=== PATIENT | female | born 1955 | race Caucasian/White ===

== ENCOUNTER → 2022-02-19 15:16 | Outpatient (BNVA) | payer MEDICARE, SELFPAY | PROVIDERS: Family Provider Nurse Practitioner Family; PCP Nurse Practitioner Family; Visit Provider Internal Medicine | DX: I10 Essential (primary) hypertension (principal); I34.0 Nonrheumatic mitral (valve) insufficiency; I25.10 Atherosclerotic heart disease of native coronary artery without angina pectoris; E78.5 Hyperlipidemia, unspecified | CPT/HCPCS: 99213 ==

== ENCOUNTER → 2023-06-05 14:47 | Outpatient (BNVA) | payer MEDICARE, SELFPAY | PROVIDERS: Family Provider Nurse Practitioner Family; PCP Nurse Practitioner Family; Visit Provider Internal Medicine | DX: I10 Essential (primary) hypertension (principal); I34.0 Nonrheumatic mitral (valve) insufficiency; I25.10 Atherosclerotic heart disease of native coronary artery without angina pectoris; E78.5 Hyperlipidemia, unspecified | CPT/HCPCS: 99213 ==

== ENCOUNTER → 2024-06-03 12:02 | Outpatient (BNVA) | payer MEDICARE, SELFPAY | PROVIDERS: Family Provider Nurse Practitioner Family; PCP Nurse Practitioner Family; Visit Provider Internal Medicine | DX: I25.10 Atherosclerotic heart disease of native coronary artery without angina pectoris (principal); I10 Essential (primary) hypertension; I34.0 Nonrheumatic mitral (valve) insufficiency; E78.5 Hyperlipidemia, unspecified | CPT/HCPCS: 99214 ==

== ENCOUNTER 2025-01-11 11:54 | Inpatient (IN) | payer MEDICARE, SELFPAY ==
[2025-01-11] VITALS (50 sets, daily range): BP systolic 97–173; BP diastolic 60–133; PULSE 109–150; RESP 14–45; TEMP 36.3; O2SAT 86–100
--- NOTE | 2025-01-11 12:07 | XR_ITS ---
WS: [id number] Exam: XR chest 1V portable [id number] Date/Time of Exam: 01/11/2025 1:02 PM Reason For Exam: sob No priors. Lungs are fully expanded and clear. Mild cardiac enlargement. No pleural effusions. The mediastinum is normal in contour. Bony structures are intact. XR/XR chest 1V portable [id number] IMPRESSION: 1. Mild cardiac enlargement. No acute process.
--- NOTE | 2025-01-11 12:08 | ECG_ITS ---
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 Measurements Intervals [place] Rate: 156 P: 0 PA: 0 QRS: -63 QRSD: 162 T: 125 QT: 332 QTc: 536 Interpretive Statements ATRIAL FIBRILLATION WITH RAPID VENTRICULAR RESPONSE LEFT AXIS DEVIATION [QRS AXIS < -30] INTRAVENTRICULAR CONDUCTION DELAY [130+ ms QRS DURATION] ST DEPRESSION, CONSIDER SUBENDOCARDIAL INJURY [0.1+ mV ST DEPRESSION] CRITICAL TEST RESULT INTERPRETATION BASED ON A DEFAULT AGE OF 40 YEARS No previous ECG available for comparison Electronically Signed On 01-11-2025 18:48:18 CDT by Kristen Chaudhary M.D. [email or web address] [id number]
[2025-01-11] MEDS: amiodarone 50 mg/mL SDV 3 mL 150 MG IVP (12:10)
--- NOTE | 2025-01-11 12:14 | ED_ITS ---
HPI - Arrhythmia/Palpitations 2 General: Chief Complaint: Arrhythmia/Palpitations Stated Complaint: trouble breathing, back pain Time Seen by Provider: 01/11/25 12:07 Source: patient Mode of arrival: ambulatory Limitations: no limitations History of Present Illness: 69-year-old female history of coronary d isease states that over the last 2 days she has been having palpitations with her heart racing along with some upper back pain. States she has had some mild chest pains no pain currently. She does appear to be in A-fib with RVR no known history of A-fib. She denies any dyspnea or fever. Associated symptoms: Deny nausea or vomiting Related Data Home Medications ?Medication ?Instructions ?Recorded ?Confirmed aspirin 81 mg tablet,delayed 81 mg PO QDAY 11/01/19 release (Adult Low Dose Aspirin) pseudoephedrine HCl 30 mg tablet 30 mg PO DAILY PRN Co ngestion 11/02/19 01/11/25 chlorpheniramine maleate 4 mg 4 mg PO DAILY 01/11/25 0 01/11/25 tablet lovastatin 40 mg tablet 40 mg PO Q7D 01/11/25 metoprolol tartrate 50 mg tablet 50 mg PO BID 01/11/25 01/11/25 Previous Rx's ?Medication ?Instructions ?Recorded amlodipine 5 mg tablet 5 mg PO QDAY #90 tabs omeprazole 20 mg capsule,delayed 20 mg PO DAILY #90 ca ps 11/09/24 release spironolactone 25 mg tablet 25 mg PO QDAY #90 tabs 01/28 hydrochlorothiazide 25 mg tablet 25 mg PO QAM #90 tabs 11/22/24 Allergies Allergy/AdvReac Type Severity Reaction Status Date / Time Penicillins Allergy Severe ALGY-Rash Verified 01/11/25 12:07 simvastatin Allergy Intermediate ADR-Abdominal Verified 01/11/25 12:07 Pain lisinopril (From Zestril) AdvReac Intermediate ADR-Cough Verified 01/11/25 12:07 Review of Systems 2 Const: Denies: fever(s), chills, body aches or change in appetite ENMT: Denies: throat pain or dental pain Card: Reports: chest pain, palpitations and irregular heart rhythm Resp: Denies: dyspnea GI: Denies: abdominal pain, nausea, vomiting or diarrhea Musc: Reports: back pain; Denies: neck pain Skin/Breast: Denies: rash Neuro: Denies: headache(s) PFSH ED 2 PFSH: Medical History (Updated 01/11/25 @ 14:30 by Lisandro Verdin MD) HTN (hypertension) Mitral regurgitation ASHD (arteriosclerotic heart disease) Dyslipidemia Family History Father CAD (coronary artery disease) Myocardial infarction Sister CAD (coronary artery disease) Myocardial infarction Mother CAD (coronary artery disease) Myocardial infarction Brother Lung disease CAD (coronary artery disease) Myocardial infarction Social History Smoking and tobacco/nicotine status: never used tobacco/nicotine Alcohol intake: never Substance/Drug Use: never Lives independently: Yes Household members: spouse Marital status: Current occupational status: retired Micki/Sabianist: Islam Physical Exam 2 Const: COMMON NORMALS: patient oriented x3 HENMT: COMMON NORMALS: normocephalic and atraumatic HEAD & SCALP: n ormocephalic and atraumatic Eye: COMMON NORMALS: conjunctivae normal CONJUNCTIVA: Yes conjunctivae normal Neck/C-Spine: COMMON NORMALS: full ROM and supple Chest: COMMONS NORMALS: normal inspection of the chest Resp: COMMON NORMALS: normal respiratory effort, No retractions, No use of accessory muscles and clear to auscultation bilaterally AUSCULTATION: clear to auscultation bilaterally Cardio: COMMON NORMALS: No murmurs present (Cardio) RATE: tachycardic R HYTHM: abnormal rhythm irregularly irregular GI: COMMON NORMALS: Normal to inspection, nondistended, normoactive bowel sounds present, Soft to palpation, non-tender and no masses PALPATION: Yes Soft to palpation Extremity: COMMON NORMALS: normal to inspection and full ROM Neuro: COMMON NORMALS: patient oriented x3, moves all extremities and no focal motor deficits Psych: COMMON NORMALS: mental status grossly normal, Normal thought process present and cooperative THOUGHT PROCESS: Normal thought process present Skin: COMMON NORMALS: no rashes or lesions noted and no wounds GENERAL SKIN EXAM: no rashes or lesions noted Course 2 Vital Signs: Vital signs: Vital Signs Temperature 97.3 F L 01/11/25 11:56 Pulse Rate 121 H 01/11/25 12:51 Respiratory Rate 16 01/11/25 13:27 Blood Pressure 112/70 01/11/25 12:51 Pulse Oximetry 96 01/11/25 13:27 Oxygen Delivery Me thod Room Air 01/11/25 11:56 MDM - Arrhythmia/Palpitations Medical Decision Making Patient presents here with A-fib with RVR initial troponin and BNP are elevated she had no chest pain here CT showed no signs of PE did start on amiodarone her heart rate has improved did start on heparin as well spoke to hospitalist will admit at this time Medical Records I reviewed the patient's medical records. Lab Data I reviewed the patient's lab results. 01/11/25 12:10 01/11/25 12:10 Radiology Impressions Chest X-Ray 01/11/25 12:07 IMPRESSION: 1. Mild cardiac enlargement. No acute process. Chest CTA 01/11/25 12:55 IMPRESSION: 1. No evidence of pulmonary embolus. 2. Cardiomegaly with evidence of RIGHT heart dysfunction and reflux of contrast into the hepatic veins. 3. Interstitial thickening likely due to edema. No focal pneumonia. Laboratory Results WBC 13.24 10^3/uL (3.29-11.43) H 01/11/25 12:10 RBC 4.00 10^6/uL (3.85-5.65) 01/11/25 12:10 Hgb 12.20 g/dL (11.27-16.99) 01/11/25 12:10 Hct 38.0 % (36-47) 01/11/25 12:10 MCV 95.0 fl (85-98) 01/11/25 12:10 MCH 30.5 pg (27-33) 01/11/25 12:10 MCHC 32.1 g/dL (30-55) 01/11/25 12:10 RDW 13.0 % (12.1-15.1) 01/11/25 12:10 Plt Count 376 10^3/cmm (157-399) 01/11/25 12:10 MPV 10.2 fL (7.4-10.4) 01/11/25 12:10 Neut % (Auto) 72.6 % 01/11/25 12:10 Lymph % (Auto) 19.0 % 01/11/25 12:10 [place] % (Auto) 7.3 % 01/11/25 12:10 Eos % (Auto) 0.2 % 01/11/25 12:10 Baso % (Auto) 0.4 % 01/11/25 12:10 Neut # (Auto) 9.61 10^3/uL (1.8-7.7) H 01/11/25 12:10 Lymph # (Auto) 2.5 10^3/uL (0.8-4.8) 01/11/25 12:10 [place] # (Auto) 1.0 10^3/uL (0.2-0.9) H 01/11/25 12:10 Eos # (Auto) 0.0 10^3/uL (0.0-0.8) 01/11/25 12:10 Baso # (Auto) 0.1 10^3/uL (0.0-0.1) 01/11/25 12:10 Nucleated RBC % (auto) 0 % 01/11/25 12:10 Nucleated RBCs # 0.0 /100WBC 01/11/25 12:10 PT 15.00 SECONDS (12.1-14.9) H 01/11/25 12:10 INR 1.10 (0.8-1.2) 01/11/25 12:10 Sodium 131 mmol/L (136-145) L 01/11/25 12:10 Potassium 4.6 mmol/L (3.5-5.1) 01/11/25 12:10 Chloride 89 mmol/L (98-107) L 01/11/25 12:10 Carbon Dioxide 18 mmol/L (22-29) L 01/11/25 12:10 Anion Gap 28.6 (5-19) H 01/11/25 12:10 BUN 49 mg/dL (8-23) H 01/11/25 12:10 Creatinine 1.7 mg/dL (0.5-0.9) H 01/11/25 12:10 GFR Calculation Not Reportable 01/11/25 12:10 Glucose 366 mg/dL (65-115) H 01/11/25 12:10 Calculated Osmolality 300 mOsm/kg (285-295) H 01/11/25 12:10 Calcium 10.8 mg/dL (8.5-10.5) H 01/11/25 12:10 Total Bilirubin 0.9 mg/dL (0.15-1.2) 01/11/25 12:10 AST 25 U/L (0-32) 01/11/25 12:10 ALT 26 U/L (0-33) 01/11/25 12:10 Alkaline Phosphatase 78 U/L (35-105) 01/11/25 12:10 Troponin T Baseline 201 ng/L (0-10) H* 01/11/25 12:10 Troponin T 120 Minute 169.9 ng/L (0-10) H 01/11/25 13:52 Delta Troponin T -31.1 ABS# (0-10) L 01/11/25 13:52 NT-Pro-B Natriuret Pep 78331 pg/mL (0-125) H 01/11/25 12:10 Total Protein 8.3 g/dL (6.6-8.7) 01/11/25 12:10 Albumin 5.0 g/dL (3.5-5.2) 01/11/25 12:10 Globulin 3.3 g/dL (1.3-4.6) 01/11/25 12:10 All radiology interpretation(s) finalized by discharge EKG Data EKG 1: I personally reviewed and interpreted this EKG as follows: EKG interpretation date: 01/11/25 EKG interpretation time: 12:02 Interpretation: afib rvr hr [address] elevation qrs 162 qtc 420 Other EKG comments: Chest X-Ray 01/11/25 12:07 IMPRESSION: 1. Mild cardiac enlargement. No acute process. Chest CTA 01/11/25 12:55 IMPRESSION: 1. No evidence of pulmonary embolus. 2. Cardiomegaly with evidence of RIGHT heart dysfunction and reflux of contrast into the hepatic veins. 3. Interstitial thickening likely due to edema. No focal pneumonia. EKG 2: I personally reviewed and interpreted this EKG as follows: EKG interpretation date: 01/11/25 EKG interpretation time: 12:45 Interpretation: afib rvr hr [address] elevation qrs 180 qtc 451 Other EKG comments: Chest X-Ray 01/11/25 12:07 IMPRESSION: 1. Mild cardiac enlargement. No acute process. Chest CTA 04/08/25 12:55 IMPRESSION: 1. No evidence of pulmonary embolus. 2. Cardiomegaly with evidence of RIGHT heart dysfunction and reflux of contrast into the hepatic veins. 3. Interstitial thickening likely due to edema. No focal pneumonia. Critical Care Time 2 Critical Care Time: Critical Care Time: Yes Total Critical Care Time: 45 Attestation: The high probability of a clinically significant, sudden or life threatening deterioration of the patient's cv system(s) required my full and direct attention, intervention and personal management. The critical care time is as shown. This time is in addition to time spent performing any reported procedures but includes the following: [x] Data and vital sign review and interpretation [x] Patient assessment, examination and intervention [x] Documentation [x] Medication orders and management Discharge Plan Discharge Patient Disposition: Admitted As Inpatient Clinical Impression: Atrial fibrillation with RVR Condition: Stable Prescriptions: No Action aspirin [Adult Low Dose Aspirin] 81 mg tablet,delayed release (DR/EC) 81 mg PO QDAY pseudoephedrine HCl 30 mg tablet 30 mg PO DAILY PRN (Reason: Congestion) amlodipine 5 mg tablet 5 mg PO QDAY Qty: 90 0RF spironolactone 25 mg tablet 25 mg PO QDAY Qty: 90 3RF omeprazole 20 mg capsule,delayed release(DR/EC) 20 mg PO DAILY Qty: 90 3RF hydrochlorothiazide 25 mg tablet 25 mg PO QAM Qty: 90 3RF chlorpheniramine maleate [Chlor Allergy] 4 mg Tablet 4 mg PO DAILY lovastatin 40 mg tablet 40 mg PO Q7D metoprolol tartrate 50 mg tablet 50 mg PO BID Referrals: Mila Mcintosh, SENIOR CLINICAL SAS PROGRAMMER-C [Primary Care Provider] - Print Language: Nigerien Coding Level of Care Code ED [employer]ling [employer] Grader for [place]
[2025-01-11 12:19] LABS: Basophils # 0.1 10^3/uL (0.0-0.1); Basophils % 0.4 %; Eosinophils % 0.2 %; Lymphocytes # 2.5 10^3/uL (0.8-4.8); Mean Corpuscular HGB Conc 32.1 g/dL (30-55); Mean Corpuscular Hemoglobin 30.5 pg (27-33); Mean Platelet Volume 10.2 fL (7.4-10.4); Monocytes % 7.3 %; Neutrophils # 9.61 10^3/uL (1.8-7.7); Neutrophils % 72.6 %; Nucleated Red Blood Cells % 0 %; Platelet Count 376 10^3/cmm (157-399); White Blood Count 13.24 10^3/uL (3.29-11.43)
[2025-01-11] MEDS: sodium chloride 0.9% 1,000 ML 999 ML IV (12:26)
[2025-01-11 12:44] LABS: Troponin(5th) Baseline 201 ng/L (0-10)
[2025-01-11 12:48] LABS: Alanine Aminotransferase 26 U/L (0-33); Alkaline Phosphatase 78 U/L (35-105); Anion Gap 28.6 (5-19); Aspartate Amino Transferase 25 U/L (0-32); Blood Urea Nitrogen 49 mg/dL (8-23); Calcium 10.8 mg/dL (8.5-10.5); Carbon Dioxide 18 mmol/L (22-29); Chloride 89 mmol/L (98-107); Creatinine Clr Calc Pharmacy 29.0804; Globulin 3.3 g/dL (1.3-4.6); Glucose 366 mg/dL (65-115); NT Pro B Type Natriuretic Pept 20033 pg/mL (0-125); Osmolality Calculated 300 mOsm/kg (285-295); Potassium 4.6 mmol/L (3.5-5.1); Sodium 131 mmol/L (136-145); Total Bilirubin 0.9 mg/dL (0.15-1.2); Total Protein 8.3 g/dL (6.6-8.7)
--- NOTE | 2025-01-11 12:55 | CT_ITS ---
WS: [id number] CTA OF THE CHEST WITH PULMONARY EMBOLISM PROTOCOL TECHNIQUE: High-resolution contrast enhanced CTA of the chest with coronal and sagittal reformatted images with pulmonary embolism protocol. MIP images are also reviewed. CLINICAL INFORMATION: cp COMPARISON: None. DLP: 205.[address] scans at [facility] use at least one of these dose optimization techniques: automated exposure control; mA and/or kV adjustment per patient size (includes targeted exams where dose is matched to clinical indication); or iterative reconstruction. FINDINGS: Proximal pulmonary arteries are normal. Normal segmental and subsegmental pulmonary arteries. No evidence of pulmonary embolus. Cardiomegaly. Pooling of contrast in the RIGHT heart with reflux into the hepatic veins suggestive of RIGHT heart failure. Normal caliber thoracic aorta. Aortic and coronary calcification. Air visualized in the innominate vein and RIGHT IJ likely from central line or recent catheter placement. Lungs are well aerated. No acute pulmonary infiltrates. Interstitial thickening likely due to edema CT/CT angio chest PE protcl [id number] IMPRESSION: 1. No evidence of pulmonary embolus. 2. Cardiomegaly with evidence of RIGHT heart dysfunction and reflux of contras t into the hepatic veins. 3. Interstitial thickening likely due to edema. No focal pneumonia.
[2025-01-11] MEDS: morphine 4 mg/mL SDV 1 mL IVP (13:27)
[2025-01-11] MEDS: ondansetron 2 mg/ML SDV 2 mL 4 MG IVP (13:28)
[2025-01-11] MEDS: iohexol 350 mg/mL 500 mL Btl (per mL) IV (13:42)
[2025-01-11] MEDS: heparin 5,000 unit/mL INJ 1 mL IVP (13:59)
[2025-01-11] MEDS: heparin drip 25,000 UNIT/500 ML PREMIX 18 UNIT IV (14:03)
--- NOTE | 2025-01-11 14:08 | ECG_ITS ---
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 Measurements Intervals [place] Rate: 118 P: 0 IA: 0 QRS: -64 QRSD: 180 T: 127 QT: 381 QTc: 535 Interpretive Statements ATRIAL FIBRILLATION WITH RAPID VENTRICULAR RESPONSE WITH ABERRANT CONDUCTION OR VENTRICULAR PREMATURE COMPLEXES LEFT AXIS DEVIATION [QRS AXIS < -30] LEFT BUNDLE BRANCH BLOCK [120+ ms QRS DURATION, 80+ ms Q/S IN V1/V2, 85+ ms R IN I/aVL/V5/V6] ST DEPRESSION, CONSIDER SUBENDOCARDIAL INJURY [0.1+ mV ST DEPRESSION] Compared to ECG 01/11/2025 12:02:37 Ventricular premature complex(es) now present Aberrant conduction of supraventricular beat(s) now present Left bundle-branch block now present Intraventricular conduction delay no longer present ST (T wave) deviation still present Electronically Signed On 01-11-2025 18:56:51 CDT by Kristen Chaudhary M.D. [id number] [id number]
[2025-01-11 14:23] LABS: Troponin 5 2HR 169.9 ng/L (0-10); Troponin 5 2HR Delta -31.1 ABS# (0-10)
--- NOTE | 2025-01-11 14:42 | PM.HP ---
Providers/Chief Complaint Primary Care Provider: LEONCIO Chatterjee Chief Complaint: trouble breathing, back pain History of Present Illness Fany Morel is a 69 year old female with a past medical history significant for hypertension, hyperlipidemia, coronary artery disease, congestive heart failure, and nonischemic cardiomyopathy who presents to the emergency department with palpitations x 2 days. She endorses associated symptoms of generalized malaise and fatigue. Exertion worsens symptoms. Rest improves. Denies fevers or chills. Reports persistent cough with frothy sputum production. In emergency department, patient was found to be in atrial fibrillation with RVR. She denies prior known history of atrial fibrillation. She does endorse intermittent palpitations over time. She does have a history of heart disease. She follows in cardiology clinic. She reports a remote history of congestive heart failure following a viral infection many years ago resulting in ejection fraction around 25%. She reported it eventually recovered. She states that she does not think she has had an echo in at least 5 years. Review of Systems Narrative: A complete review of systems was obtained and is negative except as stated in HPI. Medications/Allergies Home Medications ?Medication ?Instructions ?Recorded ?Confirmed ?Last Taken ?Type aspirin 81 mg tablet,delayed 81 mg PO QDAY 11/01/19 01/11/25 01/11/25 History release (Adult Low Dose Aspirin) pseudoephedrine HCl 30 mg tablet 30 mg PO DAILY PRN Congestion 11/02/19 01/11/25 01/11/25 History amlodipine 5 mg tablet 5 mg PO QDAY #90 tabs 11/09/24 01/11/25 01/11/25 Rx omeprazole 20 mg capsule,delayed 20 mg PO DAILY #90 caps 11/09/24 01/11/25 01/11/25 Rx release spironolactone 25 mg tablet 25 mg PO QDAY #90 tabs 11/09/24 01/11/25 01/11/25 Rx hydrochlorothiazide 25 mg tablet 25 mg PO QAM #90 tabs 11/22/24 01/11/25 01/11/25 Rx chlorpheniramine maleate 4 mg 4 mg PO DAILY 01/11/25 01/11/25 01/11/25 History tablet lovastatin 40 mg tablet 40 mg PO Q7D 01/11/25 01/11/25 01/07/25 History metoprolol tartrate 50 mg tablet 50 mg PO BID 01/11/25 01/11/25 01/11/25 History Allergies Allergy/AdvReac Type Severity Reaction Status Date / Time Penicillins Allergy Severe ALGY-Rash Verified 01/11/25 12:07 simvastatin Allergy Intermediate ADR-Abdominal Verified 01/11/25 12:07 Pain lisinopril (From Zestril) AdvReac Intermediate ADR-Cough Verified 01/11/25 12:07 PFSH Acute PFSH: Medical History (Updated 01/11/25 @ 15:15 by Artemio Rubi MD) HTN (hypertension) Mitral regurgitation ASHD (arteriosclerotic heart disease) Dyslipidemia Family History Father CAD (coronary artery disease) Myocardial infarction Sister CAD (coronary artery disease) Myocardial infarction Mother CAD (coronary artery disease) Myocardial infarction Brother Lung disease CAD (coronary artery disease) Myocardial infarction Social History Smoking and tobacco/nicotine status: never used tobacco/nicotine Alcohol intake: never Substance/Drug Use: never Lives independently: Yes Household members: spouse Marital status: Current occupational status: retired Micki/Yarsani: Yarsanism Vitals/I&O/Wt Last Vital Signs Temp 97.3 F L 01/11/25 11:56 Pulse 121 H 01/11/25 12:51 Resp 16 01/11/25 13:27 BP 112/70 01/11/25 12:51 Pulse Ox 96 01/11/25 13:27 O2 Del Method Room Air 01/11/25 11:56 Weight last 48 hrs Weight 66.224 kg Physical Exam Narrative: General: Patient is awake. Appears fatigued. Head: Normocephalic. Atraumatic. EOM intact. Neck: No JVD. Cardiovascular: Tachycardic with irregularly irregular rhythm.. No gallops. No murmurs. Lungs: Dependent crackles bilaterally. Slightly tachypneic. Increased work of breathing with talking. No wheezing or rales. Skin: No jaundice. No rashes. Abdomen: Normal bowel sounds, abdomen soft and nontender. Genito Urinary: Genital exam not performed since complaints not related. Rectal: Rectal exam not performed since no symptoms indicated blood loss. Extremities: No cyanosis or clubbing. Musculoskeletal: No swollen or erythematous joints. Neurological: Moves all 4 extremities. No myoclonus. Data 01/11/25 12:10 01/11/25 12:10 A&P Assessment and plan (1) Atrial fibrillation: Newly diagnosed paroxysmal A-fib with RVR Monitor electrolytes, check magnesium Check thyroid function Blood pressure soft, will continue with amiodarone drip [id number] likely high, started on heparin drip (2) Heart failure: Patient reports remote history of congestive heart failure Clinical exam and presentation consistent with acute on chronic CHF No recent echo, complete echo requested Hemodynamics will not permit diuresis Addressing heart rate initially Strict I's and O's, daily weights, telemetry Consider cardiology consultation (3) Elevated troponin: Troponins elevated, history of nonobstructive coronary disease Trend troponins Continue aspirin Heparin infusion Telemetry (4) Hypotension: Hypotension secondary to cardiogenic cause from arrhythmia Received 1 L IV fluid bolus in the ED Monitor hemodynamics closely ensure MAP goal of at least 65 mmHg Hold home blood pressure regiment (5) Hyponatremia: Hyponatremia to 131 Received 1 L bolus of NS in ED Monitor (6) Metabolic acidosis: Metabolic acidosis Evaluate for underlying infection Urinalysis pending Check procalcitonin, CRP Check for flu and COVID (7) Renal insufficiency: BUN 49 creatinine 1.7 Unknown baseline Strict I's and O's Daily weights (8) Hyperglycemia: Hyperglycemic 366 Monitor blood glucose Check A1c (9) Hypercalcemia: Mild hypercalcemia Monitor (10) HTN (hypertension): Hold HCTZ, metoprolol, Aldactone (11) ASHD (arteriosclerotic heart disease): History nonobstructive coronary artery disease Management as above (12) Dyslipidemia: Continue to formulary statin Plan DVT prophylaxis: Heparin CODE STATUS: Full code PDMP PDMP Reviewed: Not Reviewed Attestations Medical Necessity Statement*: Patient presents with palpitations, found to have A-fib with RVR, congestive heart failure, multiple metabolic derangements, leukocytosis, generalized weakness and fatigue with expected hospitalization not to cross 2 midnights. Coding Level of Care Code Acute Code for [facility] Fwd Diagnoses Atrial fibrillation I48.91 Heart failure I50.9 Elevated troponin R79.89 Hypotension I95.9 Hyponatremia E87.1 Metabolic acidosis E87.20 Renal insufficiency N28.9 Hyperglycemia R73.9 Hypercalcemia E83.52 HTN (hypertension) I10 ASHD (arteriosclerotic heart disease) I25.10 Dyslipidemia E78.5
--- NOTE | 2025-01-11 15:10 | USCV_ITS ---
Fany Morel Age: 69 Gender: F : 1955 Exam Date: 01/11/2025 15:33 Ordering Phys: Artemio Rubi MD Technologist: Exam Location: [facility] [place] Indication: acute heart failure BP: 117 / 60 HR: 112 Rhythm: Sinus Technical Quality: Good MEASUREMENTS (Male / Female) Normal Values 2D ECHO LV Diastolic Diameter PLAX 5.7 cm 4.2 - 5.9 / 3.9 - 5.3 cm IVS Diastolic Thickness 1.3 cm 0.6 - 1.0 / 0.6 - 0.9 cm IVS Systolic Thickness 1.3 cm LVPW Diastolic Thickness 1.4 cm 0.6 - 1.0 / 0.6 - 0.9 cm LVPW Systolic Thickness 1.8 cm LVOT Diameter 2.0 cm LV Ejection Fraction 2D Teich 16.0 % LV Ejection Fraction MOD 4C 19.9 % LV Ejection Fraction MOD 2C 31.1 % LV Ejection Fraction 2C AL 32.6 % LA Diameter 4.3 cm RA Systolic Volume 4C AL 64.2 ml RA Systolic Volume 4C MOD 61.8 ml Aorta at Sinotubular Diameter 3.0 cm IVC Diameter 1.9 cm M-MODE LA Ao Ratio MM 1.3 AV Cusp Separation MM 1.9 cm DOPPLER AV Peak Velocity 98.0 cm/s LVOT Peak Velocity 47.0 cm/s AV Area Cont Eq vti 1.2 cm squared AV Area Cont Eq pk 1.5 cm squared MV Peak Velocity 135.0 cm/s MV Area PHT 6.2 cm squared Mitral E to A Ratio 2.7 TV Peak Velocity 301.5 cm/s TR Peak Velocity 305.0 cm/s TR Peak Gradient 37.2 mmHg TV Peak E Velocity 59.0 cm/s PV Peak Velocity 80.0 cm/s FINDINGS Left Ventricle Severe diffuse hypokinesis of the left ventricle. Moderately dilated LV cavity. Dyskinetic mid and apical septum Right Ventricle Normal right ventricular size and systolic function. Right Atrium Mildly increased right atrial size. Left Atrium Moderately increased left atrial size. Mitral Valve Severe mitral regurgitation. The ERO was 1.42 cm squared with a regurgitant volume of 148 mL Aortic Valve Minimally thickened aortic valve Tricuspid Valve [id number]-jisyfjmb tricuspid valve regurgitation. Pulmonic Valve No gross abnormalities noted Pericardium No pericardial effusion. Aorta Normal aortic annulus size. IVC Normal inferior vena cava. CONCLUSIONS Severe diffuse hypokinesis of the left ventricle. Moderately dilated LV cavity. Dyskinetic mid and apical septum. Moderately increased left atrial size. Mildly increased right atrial size. Severe mitral regurgitation. The ERO was 1.42 cm squared with a regurgitant volume of 148 mL. Minimally thickened aortic valve. [id number] tricuspid valve regurgitation. Estimated pulmonary artery peak systolic pressure 39 mmHg There is no pericardial effusion. There are no intracardiac masses. No similar previous studies are available for comparison Dr Kristen Chaudhary MD [facility] (Electronically Signed) Final Date: 11 January 2025 19:30 S
[2025-01-11 15:35] LABS: C Reactive Protein 14.5 mg/L (0.0-4.9)
[2025-01-11 15:42] LABS: Procalcitonin 0.11 ng/mL (0-0.5)
[2025-01-11 16:19] LABS: Influenza A NEGATIVE (Negative); Influenza B NEGATIVE (Negative); Respiratory Syncytial Virus Ce NEGATIVE (Negative); SARS-CoV-2 PCR NEGATIVE (Negative)
--- NOTE | 2025-01-11 18:23 | PC.NURSE ---
Patient transferred to CSU from ED via a bed. Patient walked from bed to floor bed, she has heparin drip and amio drip currently running.
[2025-01-11 18:47] LABS: Troponin 5 6HR 248.9 ng/L (0-10); Troponin 5 6HR Delta 47.9 ng/L (0-12)
[2025-01-11] MEDS: aspirin 81 mg EC Tablet PO (19:56)
[2025-01-11 21:15] LABS: Thyroid Stimulating Hormone 11.83 uIU/mL (0.27-4.20)
--- NOTE | 2025-01-11 21:15 | ECG_ITS ---
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 Measurements Intervals [place] Rate: 120 P: 0 CT: 0 QRS: -55 QRSD: 178 T: 120 QT: 372 QTc: 526 Interpretive Statements ATRIAL FIBRILLATION WITH RAPID VENTRICULAR RESPONSE LEFT AXIS DEVIATION [QRS AXIS < -30] LEFT BUNDLE BRANCH BLOCK [120+ ms QRS DURATION, 80+ ms Q/S IN V1/V2, 85+ ms R IN I/aVL/V5/V6] Compared to ECG 01/11/2025 12:45:58 Ventricular premature complex(es) no longer present Aberrant conduction of supraventricular beat(s) no longer present ST (T wave) deviation no longer present Electronically Signed On 01-12-2025 21:34:12 CDT by Kristen Chaudhary M.D. [id number] [id number]
[2025-01-11 21:23] LABS: Partial Thromboplastin Time 138.2 SECONDS (23.9-36.7)
[2025-01-11 22:58] LABS: Bacteria Urine 4+ /hpf; Hyaline Casts Urine 115.85 /lpf; Squamous Epithelial Cell Urine 21-50 /hpf (0-5); WBC Urine 21-50 /hpf (0-5)
[2025-01-11 23:08] LABS: Protein Urine 1+ (Negative); Specific Gravity, Urine 1.015 (1.005-1.030); Urine Appearance Cloudy (CLEAR); Urine Color Yellow (Yellow); pH Urine 5 (5-7)
[2025-01-11 23:09] LABS: Add Urine Microscopic? YES; Bilirubin Urine Neg (Negative); Blood Urine Trace (Negative); Glucose Urine UA Trace (Normal); Ketones Urine Negative (Negative); Leukocyte Esterase Urine 1+ (Negative); Nitrate Urine Negative (Negative); UA Slide Review UA Slide Review Perf; Urobilinogen Urine 1 mg/dL (Negative)
[2025-01-12] VITALS (7 sets, daily range): BP systolic 106–126; BP diastolic 63–79; PULSE 95–128; RESP 24–32; TEMP 36.3–36.9; O2SAT 93–98
--- NOTE | 2025-01-12 00:23 | PC.NURSE ---
Notified Dr. Key that patient HR has been jumping up to 130-150 more frequently. Patient is on amiodarone drip currently. BP have been soft with newest BP 102/ 79 HR 139. Received orders to give 500 mcg digoxin IV once.
[2025-01-12] MEDS: digoxin 250 mcg/ml INJ 2 mL 500 MCG IVP (00:46)
[2025-01-12 04:12] LABS: Basophils # 0.1 10^3/uL (0.0-0.1); Basophils % 0.4 %; Hematocrit 41.6 % (36-47); Lymphocytes % 5.9 %; Mean Corpuscular HGB Conc 31.5 g/dL (30-55); Mean Corpuscular Volume 98.6 fl (85-98); Mean Platelet Volume 10.4 fL (7.4-10.4); Monocytes # 0.7 10^3/uL (0.2-0.9); Monocytes % 4.1 %; Neutrophils # 14.64 10^3/uL (1.8-7.7); Neutrophils % 88.5 %; Nucleated Red Blood Cells # 0.1 /100WBC; Nucleated Red Blood Cells % 0.8 %; Platelet Count 310 10^3/cmm (157-399); Red Blood Count 4.22 10^6/uL (3.85-5.65); White Blood Count 16.54 10^3/uL (3.29-11.43)
[2025-01-12 04:23] LABS: Partial Thromboplastin Time 54.8 SECONDS (23.9-36.7)
[2025-01-12 04:44] LABS: Blood Urea Nitrogen 57 mg/dL (8-23); Calcium 10.1 mg/dL (8.5-10.5); Carbon Dioxide 15 mmol/L (22-29); Chloride 89 mmol/L (98-107); Chol HDL Ratio 6.52 mg/dL (0.0-4.40); Cholesterol 202 mg/dL (0-200); Creatinine Clr Calc Pharmacy 19.0141; Glucose 209 mg/dL (65-115); HDL Cholesterol 31 mg/dL (60-100); LDL Cholesterol Calculated 142 mg/dL (50-129); LDL HDL Ratio 4.58 RATIO (0.00-3.22); Osmolality Calculated 292 mOsm/kg (285-295); Sodium 130 mmol/L (136-145); Triglycerides 146 mg/dL (0-150)
[2025-01-12 04:47] LABS: Estmated Average Glucose 146; Hemoglobin A1C 6.7 % (4.0-6.0)
[2025-01-12 04:52] LABS: Anion Gap 31.4 (5-19); Potassium 5.4 mmol/L (3.5-5.1)
--- NOTE | 2025-01-12 05:26 | PC.NURSE ---
Notified Dr. Key of this morning labs showing potassium of 5.4. Also went over urine analysis rresults with MD. Received order to give one time dose kayexalate and repeat potassium after bowel movement. Regarding the UA will pass along to day shift team.
[2025-01-12] MEDS: sodium polystyrene sulfonate 15 gm/60 mL Btl PO (05:49)
[2025-01-12 08:25] LABS: Glucose Point of Care 234 mg/dL (70-110)
--- NOTE | 2025-01-12 08:28 | US_ITS ---
WS: [id number] RENAL ULTRASOUND HISTORY: JASMIN COMPARISON: None available. TECHNIQUE: 2-D and color Doppler imaging of the kidney submitted. Right kidney: 10.9 cm x 4.8 cm x 3.8 cm. Cortex: 1.1 cm Normal echogenicity with no hydronephrosis or mass. Left kidney: 10.0 cm x 4.8 cm x 4.5 cm. Cortex: 1.5 cm Normal echogenicity with no hydronephrosis or mass. Aorta: Normal. Urinary Bladder: Normal distention. US/US renal BI* [id number] IMPRESSION: Normal renal ultrasound.
--- NOTE | 2025-01-12 08:33 | PC.NURSE ---
Dr Vazquez asked nursing to order lasix 40mg BID.
[2025-01-12] MEDS: FUROsemide 10 mg/mL SDV 4mL 40 MG IVP (08:38)
[2025-01-12] MEDS: cefTRIAXone 1,000 mg SDV 1000 MG IVP (08:38)
[2025-01-12] MEDS: sodium bicarbonate 650 mg Tablet PO ×3 (08:39→20:16)
[2025-01-12] MEDS: aspirin 81 mg EC Tablet PO (08:39)
[2025-01-12] MEDS: ATORVASTATIN 10 MG TABLET 20 MG PO (08:40)
[2025-01-12] MEDS: pantoprazole DR 40 mg Tablet PO (08:40)
[2025-01-12 09:06] LABS: Free T4 Free Thyroxine 1.07 ng/dL (0.82-1.77)
--- NOTE | 2025-01-12 09:17 | PM.PN ---
Subjective Subjective: Patient reports breathing is slightly improved today. Her heart rate improved overnight. Received dose of digoxin. She is up to bedside chair and eating breakfast. We reviewed her echo and lab results. Discussed plan of care and patient is in agreement. Medications: Reviewed: Yes Vitals/I&O/Wt Last Vital Signs Temp 97.8 F 01/12/25 07:40 Pulse 98 01/12/25 07:40 Resp 24 H 01/12/25 07:40 BP 106/68 01/12/25 07:40 Pulse Ox 97 01/12/25 07:40 O2 Del Method Nasal Cannula 01/12/25 07:40 O2 Flow Rate 2 01/12/25 07:40 01/11/25 01/12/25 01/12/25 22:59 06:59 14:59 Intake Total 534.4 / 1534.4 104.533 / 1638.933 200 / 200 Output Total 0 / 0 Balance 534.4 / 1534.4 104.533 / 1638.933 200 / 200 Weight last 48 hrs Weight 66.224 kg Weight 66.224 kg Physical Exam Narrative: General: Patient is awake. Appears fatigued but very pleasant. Conversational. Head: Normocephalic. Atraumatic. EOM intact. Neck: Elevated JVD. Cardiovascular: Irregularly irregular rhythm. Normal rate. No gallops. Lungs: Bilateral crackles. No use of accessory muscles, no crackles or wheezes. On nasal cannula support. Less tachypneic than yesterday's exam. Skin: No jaundice. No rashes. Abdomen: Normal bowel sounds, abdomen soft and nontender. Extremities: No cyanosis or clubbing. Musculoskeletal: No swollen or erythematous joints. Neurological: Moves all 4 extremities. No myoclonus. Data 01/12/25 03:44 01/12/25 03:44 A&P Assessment and plan (1) Heart failure: Patient reports remote history of CHF related to viral infection decades ago with recovery Transthoracic echocardiogram reviewed, significant LV dysfunction and valvulopathy is present function Will question cardiology to evaluate She remains in acute heart failure, hemodynamics have improved somewhat overnight allowing room for initiation of diuresis today Strict I's and O's, daily weights, telemetry (2) Atrial fibrillation: Newly diagnosed paroxysmal A-fib with RVR Remains in atrial fibrillation, heart rate improved Continue amiodarone infusion; received digoxin push overnight Continue heparin drip Continuous telemetry monitoring Cardiology to evaluate (3) Elevated troponin: Troponins elevated with positive delta, history of nonobstructive coronary disease Continue aspirin Continue heparin infusion May benefit from ischemic workup, defer to cardiology Telemetry (4) Hypotension: Holding antihypertensives Hemodynamics improved with better heart rate control overnight Continue to monitor closely (5) Hyponatremia: Hypervolemic hyponatremia Address underlying fluid overloaded state Trend labs (6) Metabolic acidosis: Metabolic acidosis is worsening the setting of worsening heart failure/renal insufficiency We will trial sodium bicarb tabs until acidosis stabilizes/improves (7) Renal insufficiency: BUN 49 creatinine 1.7 baseline renal function unknown, patient does not knowingly carry the diagnosis of CKD Suspect cardiorenal physiology Request renal ultrasound to rule out hydronephrosis Treat underlying cardiorenal physiology Strict I's and O's Daily weights (8) HTN (hypertension): Hold HCTZ, metoprolol, Aldactone (9) ASHD (arteriosclerotic heart disease): History nonobstructive coronary artery disease Management as above (10) Dyslipidemia: Cholesterol profile reviewed, LDL markedly elevated; would benefit from more aggressive control Continue to formulary statin (11) Abnormal urinalysis: Urinalysis does have squamous cells, also evidence of infection Reflex urinalysis Start ceftriaxone (12) Hyperkalemia: Received Kayexalate this morning Telemetry monitoring Will repeat labs this afternoon (13) Type 2 diabetes mellitus: (14) Abnormal thyroid function test: TSH abnormal, free T4 normal Would not initiate levothyroxine in the setting of A-fib with RVR Would recommend repeat TFTs in 6 to 8 weeks Plan DVT prophylaxis: Heparin CODE STATUS: Full code PDMP PDMP Reviewed: Not Reviewed Attestations Medical Necessity Statement*: Patient requires ongoing hospitalization for initiation of IV diuresis, continue IV amiodarone infusion, further cardiology evaluation, and supportive care. Coding Level of Care Code Acute Code for [facility] Fwd Diagnoses Heart failure I50.9 Atrial fibrillation I48.91 Elevated troponin R79.89 Hypotension I95.9 Hyponatremia E87.1 Metabolic acidosis E87.20 Renal insufficiency N28.9 HTN (hypertension) I10 ASHD (arteriosclerotic heart disease) I25.10 Dyslipidemia E78.5 Abnormal urinalysis R82.90 Hyperkalemia E87.5 Type 2 diabetes mellitus E11.9 Abnormal thyroid function test R94.6
--- NOTE | 2025-01-12 09:24 | PC.CHAP ---
Pastoral Care Encounter/Spiritual Assessment Type of Contact [] Declined geography teacher visit [] Patient/Family/Request visit [] Outpatient visit [] Follow-up visit [] Physician referral [] Code/Alert [x] Routine visit [] Staff referral [] Actively dying [] Patient sleeping [] Family support [] [] Out of room [] Palliative care [] [] Receiving care in room [] Pre-surgical visit [] Trauma [] Long length of stay [] ICU visit [] Other: Relational/Emotional Strength [x] Patient feels connected with others/family/visitors/staff [] Distress [] Loneliness/isolation [] Abandonment Spirituality of Patient [x] Person of Micki [] Attends Adventism of their Micki [x] Believes in Prayer [] Reads Bible or Orthodox materials [] There are Spiritual issues to be addressed 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] Prayer [x] Active listening [] Non-anxious presence [x [] Spiritual counseling [] Bereavement support [] Provided bereavement packet [] Provided Bible/devotional materials [] Provided toy/stuffed animal, coloring book to patient or family member [] Provided Communion [] Anointing/[place] [] Salvation [x] Completed spiritual assessment [] Other: Impact on Illness or Injury [] Angry [] Fearful [] Anxious [] Often cries [] Exhaustion [] Unable to work [] Unable to attend judaism [] Unable to walk/stand [] Unable to read [] Unable to drive [] Unable to eat/drink [] Unable to sleep [] Unable to be with family [] Patient intubated [] Other: Summary Time spent with patient 5 min
[2025-01-12] MEDS: acetaminophen 325 mg Tablet 650 MG PO (11:38)
[2025-01-12 12:06] LABS: Glucose Point of Care 273 mg/dL (70-110)
[2025-01-12] MEDS: insulin lispro 100 unit/1 mL SUBCUT ×3 (12:24→22:34)
[2025-01-12 13:10] LABS: Partial Thromboplastin Time 36.3 SECONDS (23.9-36.7)
[2025-01-12] MEDS: heparin 5,000 unit/mL INJ 1 mL IVP ×2 (13:54→19:04)
--- NOTE | 2025-01-12 14:12 | PC.NURSE ---
Heparin drip bag still has volume.
--- NOTE | 2025-01-12 14:13 | PC.NURSE ---
Patient is complaining of her right upper arm is hurting. Her IV is in her right wrist and has blood return. No redness or swelling around the IV. Nursing examined the upper arm and no signs of anything. A bag of ice is placed by nursing wrapped in a towel.
--- NOTE | 2025-01-12 14:32 | P.CONIM_ITS ---
<Statement entered by Randall Vazquez MD - 01/12/25 22:21> Patient was evaluated and cared for in conjunction with an advanced practice practitioner. I personally examined the patient and reviewed the chart and all pertinent data including imaging, telemetry, and laboratory results. I discussed the patient in detail with the advanced practice practitioner. Please see their note for complete H&P testing result and agreed upon plan of care for the patient. 69-year-old female presented with shortness of breath PND orthopnea palpitation noted to be in A-fib with RVR and acute decompensated systolic heart failure echocardiogram showed severely depressed ejection fraction and moderate mitral regurgitation, troponin were elevated thought to be possible etiology of underlying coronary artery disease and non-ST elevation HI we have been asked to assist in her care. GENERAL: Patient is alert, awake and oriented x3. Sitting in the chair HEART: Irregularly irregular S1 and S2. No murmur, rub or gallop. LUNGS: Decreased breath sound bilaterally but inspiratory prominent crackles in the basal to mid region of the lungs CENTRAL NERVOUS SYSTEM: Grossly nonfocal. EXTREMITIES: Lower extremities with out edema bilaterally. Assessment and plan Atrial fibrillation rapid ventricular response Acute decompensated systolic heart failure Severe LV dysfunction Non-ST ovation HI Mitral valve regurgitation Acute on chronic kidney disease most likely cardiorenal Plan: Continue IV amiodarone Start patient on Lasix 40 mg IV twice daily once euvolemic will switch to p.o. hopefully will diuresis kidney function will improve as well Further plan will be to advise as per progress of the patient Providers/Reason For Consult 2 Consulting Physician/Specialty*: Randall Vazquez MD Reason for Consult*: A-fib RVR, systolic CHF Requesting Physician: Dr. Rubi Attending Physician: Artemio Rubi MD Primary Care Provider: LEONCIO Chatterjee History of Present Illness History of Present Illness Fany Morel is a 69 year old female who came to the ER yesterday with complaints of palpitations and upper back pain between her shoulders. In the emergency room she was found to be in A-fib RVR with rates around 156. She was given amiodarone bolus with drip and rates are now controlled. She was slightly hyponatremic and given fluid bolus for this. She denies any shoulder pain at this time. She states she does not see a primary care physician regularly. Her creatinine is elevated at 1.7. Is unsure at this time what her baseline is. Troponins were elevated at 201?169.9?248.9. CTA of the chest was done that showed cardiomegaly with evidence of right heart dysfunction and reflux into the hepatic veins without evidence of pulmonary embolus. Echo was done that showed severe diffuse hypokinesis of the left ventricle with ejection fraction around 32%. She was also seen to have severe mitral regurgitation. She states that she has a history of CHF and years ago she had developed acute systolic heart failure with low ejection fraction in the 30s due to a virus but this improved to the 50s. States that at that time she had an angiogram that showed nonischemic cardiomyopathy. Currently she denies any significant shortness of breath. On exam she does have signs of fluid overload. She does have crackles bilateral lower lobes posteriorly as well as some edema in bilateral lower extremities. Review of Systems 2 Narrative: Consitutional: denies fever, chills, body aches, or changes in appetite, denies abnormal weight loss Eyes: Denies changes in vision Card: Denies chest pain, palpitations, irregular heart rhythm, edema, syncope, shortness of breath, orthopnea, leg pain with exertion Resp: reports history of shortness of breath on exertion relieved with rest, denies hemoptysis, denies cough GI: denies abdominal pain, denies nausea or voimting, denies blood in stool : denies blood in urine, denies dysuria Musc: Denies extremity pain, denies limited range of motion or recent injury Skin: Denies rash, lesions, or wounds, denies changes to skin color Neuro: Denies nubmness in extremities, h/a, s/s of stroke Trev: Denies easy bruiding/bleeding Medications/Allergies Home Medications ?Medication ?Instructions ?Recorded ?Confirmed ?Last Taken ?Type aspirin 81 mg tablet,delayed 81 mg PO QDAY 11/01/1901/11/25 History release (Adult Low Dose Aspirin) pseudoephedrine HCl 30 mg tablet 30 mg PO DAILY PRN Co ngestion 11/02/19 01/11/25 01/11/25 History amlodipine 5 mg tablet 5 mg PO QDAY #90 tabs 01/11/25 01/11/25 Rx omeprazole 20 mg capsule,delayed 20 mg PO DAILY #90 ca ps 11/09/24 01/11/25 01/11/25 Rx release spironolactone 25 mg tablet 25 mg PO QDAY #90 tabs 01/2801/11/25 01/11/25 Rx hydrochlorothiazide 25 mg tablet 25 mg PO QAM #90 tabs 11/22/24 01/11/25 01/11/25 Rx chlorpheniramine maleate 4 mg 4 mg PO DAILY 01/11/25 0 01/11/25 01/11/25 History tablet lovastatin 40 mg tablet 40 mg PO Q7D 01/11/2501/07/25 History metoprolol tartrate 50 mg tablet 50 mg PO BID 01/11/25 01/11/25 01/11/25 History Allergies Allergy/AdvReac Type Severity Reaction Status Date / Time Penicillins Allergy Severe ALGY-Rash Verified 01/11/25 12:07 simvastatin Allergy Intermediate ADR-Abdominal Verified 01/11/25 12:07 Pain lisinopril (From Zestril) AdvReac Intermediate ADR-Cough Verified 01/11/25 12:07 Current Medications Generic Name Dose Route Start Last Admin Trade Name Freq PRN Reason Stop Dose Admin Acetaminophen 650 mg 01/11/25 18:22 01/12/25 11:38 Acetaminophen 325 Mg Tablet PO 650 mg Q6H PRN Administration Mild/Mod Pain Or Temp >/= 101 Aspirin 81 mg 01/11/25 18:22 01/12/25 08:39 Aspirin 81 Mg Ec Tablet PO 81 mg DAILY ALEJANDRO Administration Atorvastatin Calcium 20 mg 01/12/25 09:00 01/12/25 08:40 Atorvastatin 10 Mg Tablet PO 20 mg Q7D ALEJANDRO Administration Ceftriaxone Sodium 1,000 mg 01/12/25 08:30 01/12/25 08:38 Ceftriaxone 1,000 Mg Sdv IVP 1,000 mg Q24H ALEJANDRO Administration Protocol Furosemide 40 mg 01/12/25 08:45 01/12/25 08:38 Furosemide 10 Mg/Ml Sdv 4ml IVP 40 mg Q12H ALEJANDRO Administration Heparin Sodium (Porcine) 0 unit 01/11/25 13:01 01/12/25 13:54 Heparin 5,000 Unit/Ml Inj 1 Ml IVP 2,600 unit PRN PRN Administration Heparin Weight Based Protocol -Subsequent Bolus Protocol Amiodarone HCl/Dextrose 360 mg in 200 mls @ 0 mls/hr 01/11/25 12:08 01/12/25 07:35 Nexterone IV 0.5 mg/min .Q0M ALEJANDRO 16.67 mls/hr Administration Protocol Per Protocol Heparin Sodium/Sodium Chloride 25,000 unit in 500 mls @ 0 mls/hr 01/11/25 13:15 01/12/25 13:53 Heparin Drip IV 13.59 unit/kg/hr CONT ALEJANDRO 18 mls/hr Titration Protocol Per Protocol Insulin Human Lispro 0 unit 01/12/25 12:00 01/12/25 12:24 Insulin Lispro 100 Unit/1 Ml SUBCUT 8 unit WM&BEDTIME ALEJANDRO Administration Protocol Pantoprazole Sodium 40 mg 01/12/25 09:00 01/12/25 08:[address] 40 Mg Tablet PO 40 mg DAILY ALEJANDRO Administration Sodium Bicarbonate 650 mg 01/12/25 09:00 01/12/25 08:39 Sodium Bicarbonate 650 Mg Tablet PO 650 mg TID ALEJANDRO Administration PFSH Acute 2 PFSH: Medical History (Updated 01/12/25 @ 09:21 by Artemio Rubi MD) HTN (hypertension) Mitral regurgitation ASHD (arteriosclerotic heart disease) Dyslipidemia Family History Father CAD (coronary artery disease) Myocardial infarction Sister CAD (coronary artery disease) Myocardial infarction Mother CAD (coronary artery disease) Myocardial infarction Brother Lung disease CAD (coronary artery disease) Myocardial infarction Social History Smoking and tobacco/nicotine status: never used tobacco/nicotine Alcohol intake: never Substance/Drug Use: never Lives independently: Yes Household members: spouse Marital status: Current occupational status: retired Micki/Catholic: [employer] Vitals/I&O/Wt Last Vital Signs Temp 98.4 F 01/12/25 12:00 Pulse 100 01/12/25 12:00 Resp 28 H 01/12/25 12:00 BP 126/76 01/12/25 12:00 Pulse Ox 97 01/12/25 12:00 O2 Del Method Nasal Cannula 01/12/25 12:00 O2 Flow Rate 1 01/12/25 12:00 01/11/25 01/12/25 01/12/25 22:59 06:59 14:59 Intake Total 534.4 / 1534.4 104.533 / 1638.933 813.5 / 813.5 Output Total 0 / 0 Balance 534.4 / 1534.4 104.533 / 1638.933 813.5 / 813.5 Weight last 48 hrs Weight 146 lb Weight 146 lb Physical Exam 2 Narrative: General: No apparent distress, healthy appearing, well nourished HENMT: normoceophalic Muskuloskeletal: Full ROM Respiratory: Normal respiratory effort, course crackles bilateral lobes posteriorly, no use of accessory muscles Cardio: No JVD, regular rate, regular rhythm, S1 S2 normal, no murmurs, peripheral pulses 2+ radial palpated bilaterally GI: Normal to inspection, nondistended Extremities: Full ROM, normal, normal capillary refill, no cyanosis, 2+ nonpitting edema bilateral lower extremities Neuro: Alert and oriented x4, no focal motor deficits Psych: Affect normal, denies suicidal ideation, mental status grossly normal Skin: No rashes or lesions noted, no wounds Data 01/12/25 03:44 01/12/25 03:44 A&P Assessment and plan (1) Mitral regurgitation: (2) Atrial fibrillation with RVR: (3) Heart failure: (4) Elevated troponin: (5) HTN (hypertension): Plan It appears patient is in decompensated heart failure, which may be driven primarily by severe mitral regurgitation as well as afib. We will need to diurese her. Will add lasix 40 mg q12. Continue heparin drip for at least 48 hours. Elevated troponin could be due to demand ischemia/uncerlying coronary artery disease. Recommend continue amiodarone drip for rate control. Thank you for allowing us to care for this very pleasant 69 year old female. PDMP PDMP Reviewed: Not Reviewed Coding Level of Care Code Acute Code for [facility] Fwd Diagnoses Mitral regurgitation I34.0 Atrial fibrillation with RVR I48.91 Heart failure I50.9 Elevated troponin R79.89 HTN (hypertension) I10
[2025-01-12 14:41] LABS: Albumin Level 3.2 g/dL (3.5-5.2); Blood Urea Nitrogen 56 mg/dL (8-23); Calcium 6.9 mg/dL (8.5-10.5); Carbon Dioxide 14 mmol/L (22-29); Chloride 85 mmol/L (98-107); Creatinine Clr Calc Pharmacy 19.7747; Glucose 195 mg/dL (65-115); Phosphorus 4.9 mg/dL (2.5-4.5); Sodium 120 mmol/L (136-145)
--- NOTE | 2025-01-12 15:17 | PC.NURSE ---
Heparin drip still has volume in it.
--- NOTE | 2025-01-12 15:26 | PC.NURSE ---
Addendum entered by Mer Raza RN 01/12/25 16:05: venous ultrasound is ordered of right arm Original Note: Provider is updated that about Ms Morel, her right arm started hurting during the night and it has not gotten any better, Her IV site looks great and has blood return. The discomfort is in the upper arm. I currently have ice on it but should we do and ultrasound?
--- NOTE | 2025-01-12 16:04 | USR_ITS ---
PROCEDURE INFORMATION: Exam: US Duplex Right Upper Extremity Veins, Limited Exam date and time: 01/12/2025 4:45 PM Age: 69 years old Clinical indication: Pain; Arm, upper; Right; Patient is on heparin drip currently; Additional info: Right upper arm pain TECHNIQUE: Imaging protocol: Real-time duplex ultrasound of the right Upper Extremity with 2-D oconnor scale, color Doppler flow and spectral waveform analysis with image documentation. Limited exam focused on the right upper extremity veins. COMPARISON: CT angio chest PE protcl [id number] 01/11/2025 1:37 PM FINDINGS: Right deep veins: Unremarkable. Axillary and brachial veins are patent throughout without thrombus. Normal Doppler waveforms. Normal compressibility and/or augmentation response. Visualized internal jugular and subclavian veins are patent. Indeterminate mobile, nonshadowing echoes are seen within a patent right internal jugular vein. Superficial veins: Unremarkable. Visualized cephalic and basilic veins are patent without thrombus. Soft tissues: Unremarkable. US/[place] [id number] IMPRESSION: No evidence of deep vein thrombosis. Indeterminate mobile nonshadowing echoes within a patent right internal jugular vein. Differential considerations include chronic nonocclusive thrombus fragments or possibly iatrogenic or catheter-related debris. Correlate for history of recent catheterization or intervention.
[2025-01-12] MEDS: FUROsemide 10 mg/mL SDV 10mL 80 MG IVP (16:12)
[2025-01-12] MEDS: sodium chloride 1 gm Tablet PO (16:12)
[2025-01-12] MEDS: sodium bicarbonate 8.4% 1 mEq/mL 50mL Syr 50 MEQ IVP (16:13)
[2025-01-12 16:49] LABS: Glucose Point of Care 345 mg/dL (70-110)
[2025-01-12 17:22] LABS: Partial Thromboplastin Time 43.4 SECONDS (23.9-36.7)
[2025-01-12 20:10] LABS: Albumin Level 3.8 g/dL (3.5-5.2); Anion Gap 25.8 (5-19); Blood Urea Nitrogen 72 mg/dL (8-23); Calcium 8.3 mg/dL (8.5-10.5); Carbon Dioxide 17 mmol/L (22-29); Chloride 86 mmol/L (98-107); Creatinine Clr Calc Pharmacy 15.9473; Glucose 278 mg/dL (65-115); Phosphorus 5.9 mg/dL (2.5-4.5); Potassium 3.8 mmol/L (3.5-5.1); Sodium 125 mmol/L (136-145)
[2025-01-12] MEDS: dilTIAZem 5 mg/mL SDV 5 mL IVP (20:16)
[2025-01-12 20:49] LABS: Potassium, Radom Urine 33 mmol/L; Urine Random Chloride 71 mmol/L; Urine Random Sodium 73 mmol/L
[2025-01-12 21:02] LABS: Glucose Point of Care 288 mg/dL (70-110)
--- NOTE | 2025-01-12 21:53 | PC.NURSE ---
2129- Notified that patient HR is still 130-150 current BP 129/55. MD to place orders for KCL and low dose digoxin. Also received orders to reach out to Dr. Vazquez to see if he had any suggestions. 2149- Dr. Vazquez returned phone called. Per Dr. Vazquez add metoprolol 25 mg BID PO in adjuction with the ordered digoxin and order a digoxin lab in AM.
[2025-01-12] MEDS: metoprolol tartrate 25 mg Tablet PO (22:35)
[2025-01-12] MEDS: potassium chloride ER 20 mEq Tablet 40 MEQ PO (22:35)
[2025-01-12] MEDS: digoxin 250 mcg/ml INJ 2 mL 125 MCG IVP (22:36)
[2025-01-12] MEDS: heparin drip 25,000 UNIT/500 ML PREMIX 21 UNIT IV (22:50)
[2025-01-13] VITALS (26 sets, daily range): BP systolic 93–128; BP diastolic 63–99; PULSE 117–145; RESP 16–35; TEMP 36.6–36.9; O2SAT 91–95
[2025-01-13] MEDS: acetaminophen 325 mg Tablet 650 MG PO ×2 (00:27→11:29)
[2025-01-13 01:03] LABS: Partial Thromboplastin Time 36.4 SECONDS (23.9-36.7)
[2025-01-13 01:10] LABS: Albumin Level 4.2 g/dL (3.5-5.2); Anion Gap 24.9 (5-19); Blood Urea Nitrogen 68 mg/dL (8-23); Calcium 8.5 mg/dL (8.5-10.5); Carbon Dioxide 19 mmol/L (22-29); Chloride 88 mmol/L (98-107); Creatinine Clr Calc Pharmacy 15.9473; Glucose 153 mg/dL (65-115); Phosphorus 5.7 mg/dL (2.5-4.5); Potassium 3.9 mmol/L (3.5-5.1); Sodium 128 mmol/L (136-145)
[2025-01-13] MEDS: heparin 5,000 unit/mL INJ 1 mL IVP ×2 (01:33→15:27)
--- NOTE | 2025-01-13 03:01 | PC.NURSE ---
[facility] and asked how HR was. HR still 120-130, VSS and no complaints of CP or SOB. Received orders to monitor for symptoms and if symptoms occur will cardiovert.
[2025-01-13 06:18] LABS: Glucose Point of Care 149 mg/dL (70-110)
[2025-01-13] MEDS: FUROsemide 10 mg/mL SDV 10mL 80 MG IVP ×2 (06:36→17:54)
--- NOTE | 2025-01-13 07:04 | W.PM.EVENTAC ---
Event Note Event Note: Patient remained in A-fib with RVR heart rate in the 130s, as per cardiology last night dose of metoprolol was given without much success, Extra dose of digoxin was not administered when Case discussed with Dr. Sawyer Patient remained asymptomatic Patient may need DC cardioversion?
[2025-01-13 07:12] LABS: Basophils % 0.4 %; Eosinophils # 0.1 10^3/uL (0.0-0.8); Hematocrit 34.7 % (36-47); Lymphocytes # 1.5 10^3/uL (0.8-4.8); Lymphocytes % 15.9 %; Mean Corpuscular HGB Conc 33.7 g/dL (30-55); Mean Corpuscular Hemoglobin 30.5 pg (27-33); Mean Corpuscular Volume 90.6 fl (85-98); Mean Platelet Volume 10.5 fL (7.4-10.4); Monocytes # 0.3 10^3/uL (0.2-0.9); Monocytes % 3.1 %; Neutrophils # 7.61 10^3/uL (1.8-7.7); Neutrophils % 78.4 %; Nucleated Red Blood Cells # 0.3 /100WBC; Nucleated Red Blood Cells % 3.3 %; Platelet Count 284 10^3/cmm (157-399); Red Blood Count 3.83 10^6/uL (3.85-5.65); Red Cell Distribution Width 13.1 % (12.1-15.1); White Blood Count 9.71 10^3/uL (3.29-11.43)
[2025-01-13 07:14] LABS: Partial Thromboplastin Time 57.5 SECONDS (23.9-36.7)
[2025-01-13 07:22] LABS: Albumin Level 3.9 g/dL (3.5-5.2); Alkaline Phosphatase 93 U/L (35-105); Anion Gap 27.3 (5-19); Blood Urea Nitrogen 69 mg/dL (8-23); Calcium 8.3 mg/dL (8.5-10.5); Carbon Dioxide 17 mmol/L (22-29); Chloride 89 mmol/L (98-107); Creatinine Clr Calc Pharmacy 17.9677; Globulin 3.4 g/dL (1.3-4.6); Glucose 174 mg/dL (65-115); Magnesium 1.7 mg/dL (1.7-2.3); Osmolality Calculated 292 mOsm/kg (285-295); Phosphorus 5.2 mg/dL (2.5-4.5); Potassium 4.3 mmol/L (3.5-5.1); Sodium 129 mmol/L (136-145); Total Bilirubin 1.4 mg/dL (0.15-1.2); Total Protein 7.3 g/dL (6.6-8.7)
[2025-01-13 07:33] LABS: Alanine Aminotransferase 4412 U/L (0-33)
[2025-01-13 07:36] LABS: Aspartate Amino Transferase 3130 U/L (0-32)
[2025-01-13 07:38] LABS: Digoxin 2.6 ng/mL (0.6-1.2)
[2025-01-13 08:27] LABS: Albumin Level 3.9 g/dL (3.5-5.2); Anion Gap 23.8 (5-19); Blood Urea Nitrogen 73 mg/dL (8-23); Calcium 8.1 mg/dL (8.5-10.5); Carbon Dioxide 18 mmol/L (22-29); Chloride 87 mmol/L (98-107); Creatinine Clr Calc Pharmacy 18.6094; Glucose 172 mg/dL (65-115); Phosphorus 5.2 mg/dL (2.5-4.5); Potassium 3.8 mmol/L (3.5-5.1); Sodium 125 mmol/L (136-145)
[2025-01-13] MEDS: pantoprazole DR 40 mg Tablet PO (08:55)
[2025-01-13] MEDS: cefTRIAXone 1,000 mg SDV 1000 MG IVP (08:55)
[2025-01-13] MEDS: sodium bicarbonate 650 mg Tablet PO ×3 (08:55→20:36)
[2025-01-13] MEDS: aspirin 81 mg EC Tablet PO (08:55)
[2025-01-13] MEDS: metoprolol tartrate 25 mg Tablet PO (08:56)
[2025-01-13] MEDS: insulin lispro 100 unit/1 mL SUBCUT ×4 (08:57→21:32)
[2025-01-13 11:47] LABS: Glucose Point of Care 178 mg/dL (70-110)
--- NOTE | 2025-01-13 12:23 | P.PN_ITS ---
Subjective 2 Subjective: Overnight, patient's heart rate remained uncontrolled. She received a dose of digoxin. This morning, she reports mild shortness of breath but states overall she feels better. I discussed her poor response to treatment with my underlying suspicion being her mitral valve making her treatment very challenging. Discussed with her recommendation for likely transfer to higher level of care for which she is agreeable. Her preference is [facility] in [place]. Cardiology team is asked that hold off on the transfer this morning, will follow-up with them regarding their plan of care. Medications: Reviewed: Yes Vitals/I&O/Wt Last Vital Signs Temp 98.0 F 01/13/25 11:36 Pulse 124 H 01/13/25 11:36 Resp 21 H 01/13/25 11:36 BP 108/66 01/13/25 11:36 Pulse Ox 92 01/13/25 11:36 O2 Del Method Room Air 01/13/25 11:36 O2 Flow Rate 1 01/12/25 20:00 01/12/25 01/13/25 01/13/25 22:59 06:59 14:59 Intake Total 447.567 / 1261.067 256.35 / 1517.417 465.017 / 465.017 Output Total 850 / 910 1250 / 2160 Balance -402.433 / 351.067 -993.65 / -642.583 465.017 / 465.017 Weight last 48 hrs Weight 74.417 kg Weight 66.224 kg Physical Exam 2 Narrative: General: Patient is awake. Alert. Appears fatigued. Head: Normocephalic. Atraumatic. EOM intact. Neck: Elevated JVD. Cardiovascular: Irregularly irregular rhythm. Tachycardic. Normal rate. No gallops. Lungs: Dependent bilateral crackles. No use of accessory muscles, no crackles or wheezes. On room air. Skin: No jaundice. No rashes. Abdomen: Normal bowel sounds, abdomen soft and nontender. Extremities: No cyanosis or clubbing. Musculoskeletal: No swollen or erythematous joints. Neurological: Moves all 4 extremities. No myoclonus. Data 01/13/25 06:54 01/13/25 07:57 A&P Assessment and plan (1) Heart failure: Patient reports remote history of CHF related to viral infection decades ago with recovery Transthoracic echocardiogram reviewed, significant LV dysfunction and valvulopathy is present function Will question cardiology to evaluate She remains in acute heart failure, hemodynamics have improved somewhat overnight allowing room for initiation of diuresis today Strict I's and O's, daily weights, telemetry (2) Mitral regurgitation: Patient has severe mitral valvulopathy I think her atrial fibrillation will be exceptionally difficult to control with this level of mitral regurgitation Patient is not responding to treatment as intended, she probably needs an urgent valve intervention; awaiting cardiology recommendations I have discussed potential transfer with patient, her preference is [facility] in [facility]; pending cardiology evaluation (3) Atrial fibrillation: Newly diagnosed paroxysmal A-fib with RVR Her heart rate remains uncontrolled She received digoxin overnight, digoxin level elevated this morning She is a very poor candidate for digoxin in setting of renal failure Discontinue amiodarone due to transaminitis Continue heparin drip Continuous telemetry monitoring Cardiology following (4) Transaminitis: Significant transaminitis No significant ischemic episodes this admission, shock liver and likely Could be congestive hepatopathy but quite severe for this pathology Could be amiodarone or other drug-induced liver injury Avoid hepatotoxins, amiodarone discontinued Trend liver function enzymes Check acute hepatitis panel Check liver ultrasound She may need gastroenterology evaluation (5) Acute kidney injury: She is in persistent renal failure Suspected cardiorenal physiology She did receive contrast on admission date with CT PE on 01/11 Renal ultrasounds negative Proceed with nephrology consult (6) Elevated digoxin level: Monitoring for digoxin toxicity Monitoring electrolytes closely Continuous telemetry monitoring (7) Elevated troponin: Continue aspirin Continue heparin infusion May benefit from ischemic workup, defer to cardiology Telemetry (8) Hyponatremia: Hypervolemic hyponatremia Trending labs Optimizing fluid balance as hemodynamics allow (9) Metabolic acidosis: Metabolic acidosis is slightly improved Continue sodium bicarb tabs Nephro consult (10) ASHD (arteriosclerotic heart disease): History nonobstructive coronary artery disease Management as above (11) Dyslipidemia: Holding statin due to transaminitis (12) Abnormal urinalysis: Continue ceftriaxone (01/12-p) (13) Type 2 diabetes mellitus: Newly diagnosed with A1c of 6.7 Will need diabetes education SSI (14) Abnormal thyroid function test: TSH abnormal, free T4 normal Would not initiate levothyroxine in the setting of A-fib with RVR Would recommend repeat TFTs in 6 to 8 weeks (15) HTN (hypertension): Hold HCTZ, metoprolol, Aldactone Plan DVT prophylaxis: Heparin CODE STATUS: Full code PDMP PDMP Reviewed: Not Reviewed Attestations 2 Medical Necessity Statement*: Patient requires ongoing hospitalization for initiation of IV diuresis, further cardiology evaluation, serial labs, telemetry, and supportive care. Coding Level of Care Code Acute Code for Chg Fwd Diagnoses Heart failure I50.9 Mitral regurgitation I34.0 Atrial fibrillation I48.91 Transaminitis R74.01 Acute kidney injury N17.9 Elevated digoxin level R78.89 Elevated troponin R79.89 Hyponatremia E87.1 Metabolic acidosis E87.20 ASHD (arteriosclerotic heart disease) I25.10 Dyslipidemia E78.5 Abnormal urinalysis R82.90 Type 2 diabetes mellitus E11.9 Abnormal thyroid function test R94.6 HTN (hypertension) I10
--- NOTE | 2025-01-13 12:41 | USR_ITS ---
PROCEDURE INFORMATION: Exam: US Abdomen, Limited; Right Upper Quadrant Exam date and time: 01/13/2025 5:14 PM Age: 69 years old Clinical indication: Other: Transamnitits; Additional info: Transaminitis TECHNIQUE: Imaging protocol: Real time ultrasound of the abdomen with image documentation. Limited exam focused on the right upper quadrant. COMPARISON: US renal BI* [id number] 01/12/2025 2:24 PM FINDINGS: Liver: Normal. No masses. Gallbladder: Normal. No gallstones. There is no gallbladder wall thickening. Biliary ducts: Common bile duct is nondilated and measures up to 5 mm. Pancreas: Visualized pancreas is unremarkable. Right kidney: Limited visualization of the right kidney. Right kidney measures approximately 11.4 x 3.8 x 3.9 cm. No definite hydronephrosis or obstructing calculi visualized. Spleen: Spleen was not visualized. Aorta: Visualized portion of aorta is nonaneurysmal and measures up to 1.3 cm. Inferior vena cava: Visualized portion of IVC patent. Intraperitoneal space: No free pelvic fluid. US/US liver [id number] IMPRESSION: No acute findings.
--- NOTE | 2025-01-13 12:57 | P.PN_ITS ---
<Statement entered by Randall Vazquez MD - 01/13/25 20:55> Patient was evaluated and cared for in conjunction with an advanced practice practitioner. I personally examined the patient and reviewed the chart and all pertinent data including imaging, telemetry, and laboratory results. I discussed the patient in detail with the advanced practice practitioner. Please see their note for complete H&P testing result and agreed upon plan of care for the patient. Since last night patient felt better shortness of breath martinez she is mentating well maintaining reasonable blood pressure. She has diuresed well. Denies chest pain however rate remain uncontrolled in the range of 120s Liver enzymes as went up with worsening of renal function but clinically she has improved since yesterday GENERAL: Patient is awake alert and oriented x3. HEART: Irregularly irregular r S1 and S2. 2/6 systolic murmur LUNGS: Mild scattered crackles otherwise clear bilaterally when compared to the yesterday. CENTRAL NERVOUS SYSTEM: Grossly nonfocal. Assessment and plan Atrial fibrillation with rapid ventricular response Acute decompensated systolic heart failure Severely depressed left ventricle ejection fraction less than 20-25 % by echo ischemic versus nonischemic Severe mitral valve regurgitation to be functional Moderate tricuspid regurgitation most likely secondary to left-sided heart failure Baseline left bundle branch block on presentation Non-STEMI most likely type II as troponin elevation under the circumstances fifth edition was not that high seen in the kind of primary event plus patient does not complaining of chest pain though may she have underlying possible multivessel coronary artery disease which may need to be explored once euvolemic by the left heart cath. Transaminitis could be secondary to CHF possible consideration is amiodarone induced Left bundle branch block present at the time of presentation given considerable not large troponin may not be an acute event Plan: Patient has improved since yesterday, given severe LV dysfunction dilated cardiomyopathy severe mitral regurgitation achievement of sinus rhythm is a difficult task, patient has diuresed well so far. Once euvolemic state will be achieved along with rate control, will consider mitral valve clipping (COAPT trial) as in acute setting mitral valve clipping may not be recommended until patient achieves stabilization. Reduce IV Lasix to 40 mg twice daily since patient started appearing to be on the dry side and may drop blood pressure leading to higher rate due to adrenergic response. Amiodarone is on hold due to worsening of liver enzymes however cannot rule out secondary to congested liver and decompensated heart failure, will reassess Beta-ernst was added and a low-dose metoprolol 25 mg twice daily can be increased to 25 mg 3 times daily At the moment we can try Cardizem drip without bolus and follow liver enzyme Other option is to consider JATIN guided cardioversion if atrial fibrillation remains uncontrolled Left heart catheterization once stabilized renal function and heart failure martinez to rule out ischemic component. Subjective 2 Subjective: Patient states she is feeling better. Her liver functions elevated AST at 3130 ALT at 4412. She is -797 over 24 hours. Patient is getting metoprolol tartrate 25 twice daily. Heart rate still running around the 120s. Blood pressure is soft but overall she is stable and asymptomatic. Vitals/I&O/Wt Last Vital Signs Temp 98.0 F 01/13/25 11:36 Pulse 124 H 01/13/25 11:36 Resp 21 H 01/13/25 11:36 BP 108/66 01/13/25 11:36 Pulse Ox 92 01/13/25 11:36 O2 Del Method Room Air 01/13/25 11:36 O2 Flow Rate 1 01/12/25 20:00 01/12/25 01/13/25 01/13/25 22:59 06:59 14:59 Intake Total 447.567 / 1261.067 256.35 / 1517.417 465.017 / 465.017 Output Total 850 / 910 1250 / 2160 Balance -402.433 / 351.067 -993.65 / -642.583 465.017 / 465.017 Weight last 48 hrs Weight 164 lb 1 oz Weight 146 lb Physical Exam 2 Narrative: General: No apparent distress, healthy appearing, well nourished HENMT: normoceophalic Muskuloskeletal: Full ROM Respiratory: Normal respiratory effort, course crackles bilateral lobes posteriorly, no use of accessory muscles Cardio: No JVD, regular rate, regular rhythm, S1 S2 normal, no murmurs, peripheral pulses 2+ radial palpated bilaterally GI: Normal to inspection, nondistended Extremities: Full ROM, normal, normal capillary refill, no cyanosis, 2+ nonpitting edema bilateral lower extremities Neuro: Alert and oriented x4, no focal motor deficits Psych: Affect normal, denies suicidal ideation, mental status grossly normal Skin: No rashes or lesions noted, no wounds Data 01/13/25 06:54 01/13/25 18:30 A&P Assessment and plan (1) Mitral regurgitation: (2) Atrial fibrillation with RVR: (3) Heart failure: (4) Elevated troponin: (5) HTN (hypertension): Plan Patient still in decompensated heart failure. Recommend continuing diuresis. She is currently getting Lasix 80 twice daily. Creatinine has increased to 2.8. Will have to closely watch creatinine and I&Os. The primary goal for now is to get her euvolemic. Will hold statin and amio due to increase in liver function. Once euvolemic, kidney function improves, and heart rate under control, will need LHC at some point. In the future, she may need referral to a structural team for mitral valve evaluation. She will need a JATIN prior at some point. For now, main goal is to control CHF, improve rate control, and improve renal function. Will avoid digoxin due to abnormal renal function. No indications for urgent cardioversion at this time. PDMP PDMP Reviewed: Not Reviewed Attestations 2 Medical Necessity Statement*: Deferred to primary. Coding Level of Care Code Acute Code for g Fwd Diagnoses Mitral regurgitation I34.0 Atrial fibrillation with RVR I48.91 Heart failure I50.9 Elevated troponin R79.89 HTN (hypertension) I10
[2025-01-13 13:10] LABS: Hepatitis A Antibody IgM Non-Reactive (Nonreactive); Hepatitis B Core IgM Non-Reactive (Nonreactive); Hepatitis B Surface Antigen Non-Reactive (Nonreactive); Hepatitis C Virus Antibody Non-Reactive (Nonreactive)
[2025-01-13 14:26] LABS: Partial Thromboplastin Time 44.6 SECONDS (23.9-36.7)
[2025-01-13] MEDS: heparin drip 25,000 UNIT/500 ML PREMIX 27 UNIT IV ×2 (15:28→20:47)
[2025-01-13 16:09] LABS: Glucose Point of Care 163 mg/dL (70-110)
--- NOTE | 2025-01-13 18:01 | ECG_ITS ---
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 Measurements Intervals [place] Rate: 134 P: 0 WI: 0 QRS: -41 QRSD: 170 T: 102 QT: 354 QTc: 530 Interpretive Statements ATRIAL FIBRILLATION WITH RAPID VENTRICULAR RESPONSE LEFT AXIS DEVIATION [QRS AXIS < -30] LEFT BUNDLE BRANCH BLOCK [120+ ms QRS DURATION, 80+ ms Q/S IN V1/V2, 85+ ms R IN I/aVL/V5/V6] Compared to ECG 01/11/2025 21:15:09 No significant changes Electronically Signed On 01-15-2025 13:10:44 CDT by Kristen Chaudhary M.D. [email or web address]
--- NOTE | 2025-01-13 18:01 | PC.NURSE ---
Patient showing vtach on telemetry. Dr Rubi present on the floor. Received verbal orders for stat EKG and 2g Mag Sulfated IV as ordered.
[2025-01-13] MEDS: magnesium sulfate premix 2 GM/50 ML PIGGYBACK IV (18:18)
[2025-01-13] MEDS: HYDROcodone-acetaminophen 5-325 mg Tablet 1 TAB PO (18:59)
[2025-01-13 19:13] LABS: Albumin Level 3.8 g/dL (3.5-5.2); Alkaline Phosphatase 92 U/L (35-105); Anion Gap 23.4 (5-19); Blood Urea Nitrogen 68 mg/dL (8-23); Calcium 8.2 mg/dL (8.5-10.5); Carbon Dioxide 21 mmol/L (22-29); Chloride 86 mmol/L (98-107); Globulin 3.2 g/dL (1.3-4.6); Glucose 137 mg/dL (65-115); Magnesium 1.6 mg/dL (1.7-2.3); Osmolality Calculated 286 mOsm/kg (285-295); Potassium 3.4 mmol/L (3.5-5.1); Sodium 127 mmol/L (136-145); Total Bilirubin 1.2 mg/dL (0.15-1.2); Troponin T (5th) Once 288 ng/L (0-10)
[2025-01-13 19:26] LABS: Alanine Aminotransferase 3502 U/L (0-33)
[2025-01-13 19:28] LABS: Aspartate Amino Transferase 1516 U/L (0-32)
--- NOTE | 2025-01-13 19:56 | P.TS_ITS ---
Transfer Summary Providers Date of Admission: 01/12/25 10:11 Date of Discharge/Transfer: 01/13/25 Attending Provider at Admission: Artemio Rubi MD Attending Provider at Transfer: Artemio Rubi MD Primary Care Provider: LEONCIO Chatterjee Transfer Plans: Anticipated date of transfer: 01/13/25 . Diagnoses at Discharge Discharge Diagnosis (1) Mitral regurgitation: Status: Acute (2) Atrial fibrillation with RVR: Status: Acute (3) Heart failure: Status: Acute (4) Elevated troponin: Status: Acute (5) HTN (hypertension): Status: Acute Reason for Visit Reason for Visit trouble breathing, back pain Brief History: History of Present Illness Fany Morel is a 69 year old female with a past medical history significant for hypertension, hyperlipidemia, coronary artery disease, congestive heart failure, and nonischemic cardiomyopathy who presents to the emergency department with palpitations x 2 days. She endorses associated symptoms of generalized malaise and fatigue. Exertion worsens symptoms. Rest improves. Denies fevers or chills. Reports persistent cough with frothy sputum production. In emergency department, patient was found to be in atrial fibrillation with RVR. She denies prior known history of atrial fibrillation. She does endorse intermittent palpitations over time. She does have a history of heart disease. She follows in cardiology clinic. She reports a remote history of congestive heart failure following a viral infection many years ago resulting in ejection fraction around 25%. She reported it eventually recovered. She states that she does not think she has had an echo in at least 5 years. Hospital Course Hospital Course (1) Heart failure: Patient found to have new systolic heart failure. Echo results: Severe diffuse hypokinesis of the left ventricle. Moderately dilated LV cavity. Dyskinetic mid and apical septum. Moderately increased left atrial size. Mildly increased right atrial size. Severe mitral regurgitation. The ERO was 1.42 cm squared with a regurgitant volume of 148 mL. Minimally thickened aortic valve. [id number] tricuspid valve regurgitation. Estimated pulmonary artery peak systolic pressure 39 mmHg There is no pericardial effusion. There are no intracardiac masses. No similar previous studies are available for comparison MEASUREMENTS (Male / Female) Normal Values 2D ECHO LV Diastolic Diameter PLAX 5.7 cm 4.2 - 5.9 / 3.9 - 5.3 cm IVS Diastolic Thickness 1.3 cm 0.6 - 1.0 / 0.6 - 0.9 cm IVS Systolic Thickness 1.3 cm LVPW Diastolic Thickness 1.4 cm 0.6 - 1.0 / 0.6 - 0.9 cm LVPW Systolic Thickness 1.8 cm LVOT Diameter 2.0 cm LV Ejection Fraction 2D Teich 16.0 % LV Ejection Fraction MOD 4C 19.9 % LV Ejection Fraction MOD 2C 31.1 % LV Ejection Fraction 2C AL 32.6 % LA Diameter 4.3 cm RA Systolic Volume 4C AL 64.2 ml RA Systolic Volume 4C MOD 61.8 ml Aorta at Sinotubular Diameter 3.0 cm IVC Diameter 1.9 cm M-MODE LA Ao Ratio MM 1.3 AV Cusp Separation MM 1.9 cm DOPPLER AV Peak Velocity 98.0 cm/s LVOT Peak Velocity 47.0 cm/s AV Area Cont Eq vti 1.2 cm squared AV Area Cont Eq pk 1.5 cm squared MV Peak Velocity 135.0 cm/s MV Area PHT 6.2 cm squared Mitral E to A Ratio 2.7 TV Peak Velocity 301.5 cm/s TR Peak Velocity 305.0 cm/s TR Peak Gradient 37.2 mmHg TV Peak E Velocity 59.0 cm/s PV Peak Velocity 80.0 cm/s She was treated with diuresis however was poorly responsive with a net positive fluid balance of 348 mL at time of discharge. (2) Mitral regurgitation: Patient found to have severe mitral regurgitation. The ERO was 1.42 cm squared with a regurgitant volume of 148 mL. I strongly suspect this is complicating her treatment as well as response to treatment. She would likely benefit from a transesophageal echo to determine need for valve replacement. (3) Atrial fibrillation: Newly diagnosed paroxysmal A-fib with RVR. Her heart rate remained uncontrolled. She was initially treated with amiodarone due to his soft hemodynamics. She developed severe transaminitis for which amiodarone was discontinued. She received IV digoxin due to uncontrolled rate resulting in elevated digoxin levels. No further digoxin doses was given. She was treated with beta-ernst as hemodynamics allow. Her heart rate remains uncontrolled at time of transfer. Cardiology Velasquez recommended reinitiation of amiodarone with bolus prior to transfer as the amiodarone reportedly would not have been expected to cause this degree of transaminitis per Velasquez cardiology. Patient restarted on amiodarone prior to transfer to [facility]. Patient was also treated with heparin drip for stroke prophylaxis. (4) Transaminitis: Patient developed severe transaminitis. LFTs were normal at time of admission on 01/11. She has no underlying liver disease. Liver ultrasound showed no acute findings. Her statin was held. Acute hepatitis panel negative. Needs further workup with gastroenterology evaluation. (5) Acute kidney injury: Admission creatinine 1.7. No known history of chronic kidney disease. With treatment, her kidneys worsened. Suspect cardiorenal physiology. She had associated significant electrolyte derangements as listed below. Renal u ltrasound obtained and negative for hydronephrosis. She did receive contrast in the emergency department for CT PE study. (6) Elevated digoxin level: Patient received digoxin due to uncontrolled heart rate resulting in elevated digoxin levels. Potassium was monitored. She developed a new left bundle carlyle block on the evening of 01/13 which possibly could be contributed to supratherapeutic digoxin. (7) Elevated troponin: She was found to have elevated troponin. She was treated with heparin and aspirin. She would likely benefit from an ischemic workup with cardiac catheterization. (8) Hyponatremia: Patient presented with hypervolemic hyponatremia of 131. Despite treatment, hyponatremia worsened dropping down to 120. She was transiently treated with bicarb tab and bicarb push for sodium content with improvement. At time of transfer sodium 127. (9) Metabolic acidosis: Patient presented with metabolic acidosis which initially worsened with treatment. She was started on bicarb tabs with minor improvement. (10) Left bundle carlyle block: New onset 01/13. (11) Dyslipidemia: Statin was held due to transaminitis. (12) Abnormal urinalysis: Patient's urinalysis was abnormal but had significant contamination. She was covered with ceftriaxone (01/12-p) out of abundance of caution. (13) Type 2 diabetes mellitus: Newly diagnosed with A1c of 6.7. She was treated with sliding scale insulin correction. (14) Abnormal thyroid function test: TSH abnormal, free T4 normal. (15) HTN (hypertension): Her home medications including hydrochlorothiazide and Aldactone were held due to hemodynamics. Patient failed to respond to treatment as intended. She is being transferred to [facility] intensive care unit. Patient and updated bedside this evening. Agreeable to plan of care. Physical Exam Narrative: General: Patient is awake. Head: Normocephalic. Atraumatic. EOM intact. Neck: Elevated JVD. Cardiovascular: Irregularly irregular rhythm. Tachycardic. Normal rate. No gallops. Lungs: Dependent bilateral crackles. No use of accessory muscles, no crackles or wheezes. On room air. Skin: No jaundice. No rashes. Abdomen: Normal bowel sounds, abdomen soft and nontender. Extremities: No cyanosis or clubbing. Musculoskeletal: No swollen or erythematous joints. Neurological: Moves all 4 extremities. No myoclonus. Urinary Catheter Management: Millan Latex Free: Cath Placed During This Visit: yes Urinary Catheter Date of Insertion: 01/13/25 Urinary Catheter Time of Insertion: 17:30 TS Data Studies Completed and Pending Pending at discharge Category Date Time Status CBC Auto Diff [Complete Blood Count w/Auto] AM LABS Lab 01/14/25 04:00 Ordered CMP [Comprehensive Metabolic Panel] AM LABS Lab 01/14/25 04:00 Ordered Digoxin Routine Lab 01/14/25 06:00 Ordered Digoxin Stat Lab 01/13/25 18:30 Received Lactate (Lactic Acid level) Routine Lab 01/13/25 18:51 Ordered Magnesium AM LABS Lab 01/14/25 04:00 Ordered PTT [Partial Thromboplastin Time] Routine Lab 01/13/25 20:30 Ordered Phosphorus AM LABS Lab 01/14/25 04:00 Ordered Platelet Count Q2D Lab 01/15/25 04:00 Ordered Completed Studies During Hospitalization Category Date Time Status CTA chest [CT angio chest PE protcl [id number]] Stat Cat Scan 01/11/25 12:55 Completed XR chest 1V portable [id number] Stat Exams 01/11/25 12:07 Completed CV. echo complete* [id number] Stat Ultrasound 01/11/25 15:10 [place] liver [id number] Routine Ultrasound 01/13/25 12:41 Completed US renal BI* [id number] Routine Ultrasound 01/12/25 08:28 Completed US venous duplex upper extremity RT [CV venous duplex Ultrasound 01/12/25 16:04 [place] [id number]] Routine Laboratory Last Values WBC 9.71 10^3/uL (3.29-11.43) 01/13/25 06:54 RBC 3.83 10^6/uL (3.85-5.65) L 01/13/25 06:54 Hgb 11.70 g/dL (11.27-16.99) 01/13/25 06:54 Hct 34.7 % (36-47) L 01/13/25 06:54 MCV 90.6 fl (85-98) 01/13/25 06:54 MCH 30.5 pg (27-33) 01/13/25 06:54 MCHC 33.7 g/dL (30-55) D 01/13/25 06:54 RDW 13.1 % (12.1-15.1) 01/13/25 06:54 Plt Count 284 10^3/cmm (157-399) 01/13/25 06:54 MPV 10.5 fL (7.4-10.4) H 01/13/25 06:54 Neut % (Auto) 78.4 % 01/13/25 06:54 Lymph % (Auto) 15.9 % 01/13/25 06:54 [place] % (Auto) 3.1 % 01/13/25 06:54 Eos % (Auto) 1.0 % 01/13/25 06:54 Baso % (Auto) 0.4 % 01/13/25 06:54 Neut # (Auto) 7.61 10^3/uL (1.8-7.7) 01/13/25 06:54 Lymph # (Auto) 1.5 10^3/uL (0.8-4.8) 01/13/25 06:54 [place] # (Auto) 0.3 10^3/uL (0.2-0.9) 01/13/25 06:54 Eos # (Auto) 0.1 10^3/uL (0.0-0.8) 01/13/25 06:54 Baso # (Auto) 0.0 10^3/uL (0.0-0.1) 01/13/25 06:54 Nucleated RBC % (auto) 3.3 % 01/13/25 06:54 Nucleated RBCs # 0.3 /100WBC 01/13/25 06:54 PT 15.00 SECONDS (12.1-14.9) H 01/11/25 12:10 INR 1.10 (0.8-1.2) 01/11/25 12:10 APTT 44.6 SECONDS (23.9-36.7) H 01/13/25 13:56 Sodium 127 mmol/L (136-145) L 01/13/25 18:30 Sodium Cancelled 01/13/25 18:30 Potassium 3.4 mmol/L (3.5-5.1) L 01/13/25 18:30 Potassium Cancelled 01/13/25 18:30 Chloride 86 mmol/L (98-107) L 01/13/25 18:30 Chloride Cancelled 01/13/25 18:30 Carbon Dioxide 21 mmol/L (22-29) L 01/13/25 18:30 Carbon Dioxide Cancelled 01/13/25 18:30 Anion Gap 23.4 (5-19) H 01/13/25 18:30 Anion Gap Cancelled 01/13/25 18:30 BUN 68 mg/dL (8-23) H 01/13/25 18:30 BUN Cancelled 01/13/25 18:30 Creatinine 2.4 mg/dL (0.5-0.9) H 01/13/25 18:30 Creatinine Cancelled 01/13/25 18:30 GFR Calculation Cancelled 01/13/25 18:30 GFR Calculation Not Reportable 01/13/25 18:30 Glucose 137 mg/dL (65-115) H 01/13/25 18:30 Glucose Cancelled 01/13/25 18:30 POC Glucose 163 mg/dL (70-110) H 01/13/25 15:42 Estimat Average Glucose 146 01/12/25 03:44 Hemoglobin A1c 6.7 % (4.0-6.0) H 01/12/25 03:44 Calculated Osmolality 286 mOsm/kg (285-295) 01/13/25 18:30 Calculated Osmolality Cancelled 01/13/25 18:30 Calcium 8.2 mg/dL (8.5-10.5) L 01/13/25 18:30 Calcium Cancelled 01/13/25 18:30 Phosphorus 5.2 mg/dL (2.5-4.5) H 01/13/25 07:57 Magnesium 1.6 mg/dL (1.7-2.3) L 01/13/25 18:30 Total Bilirubin 1.2 mg/dL (0.15-1.2) 01/13/25 18:30 Total Bilirubin Cancelled 01/13/25 18:30 AST 1516 U/L (0-32) H 01/13/25 18:30 AST Cancelled 01/13/25 18:30 ALT 3502 U/L (0-33) H 01/13/25 18:30 ALT Cancelled 01/13/25 18:30 Alkaline Phosphatase 92 U/L (35-105) 01/13/25 18:30 Alkaline Phosphatase Cancelled 01/13/25 18:30 Troponin T 5th Gen ng/L 288 ng/L (0-10) H* 01/13/25 18:30 Troponin T Baseline 201 ng/L (0-10) H* 01/11/25 12:10 Troponin T 120 Minute 169.9 ng/L (0-10) H 01/11/25 13:52 Delta Troponin T -31.1 ABS# (0-10) L 01/11/25 13:52 Troponin T Hi Sens 6Hr 248.9 ng/L (0-10) H 01/11/25 18:15 Troponin T Hi Sens 6Hr Delta 47.9 ng/L (0-12) H* 01/11/25 18:15 C-Reactive Protein 14.5 mg/L (0.0-4.9) H 01/11/25 13:52 NT-Pro-B Natriuret Pep 34794 pg/mL (0-125) H 01/11/25 12:10 Total Protein 7.0 g/dL (6.6-8.7) 01/13/25 18:30 Total Protein Cancelled 01/13/25 18:30 Albumin 3.8 g/dL (3.5-5.2) 01/13/25 18:30 Albumin Cancelled 01/13/25 18:30 Globulin 3.2 g/dL (1.3-4.6) 01/13/25 18:30 Globulin Cancelled 01/13/25 18:30 Triglycerides 146 mg/dL (0-150) 01/12/25 03:44 Cholesterol 202 mg/dL (0-200) H 01/12/25 03:44 LDL Cholesterol, Calc 142 mg/dL (50-129) H 01/12/25 03:44 HDL Cholesterol 31 mg/dL (60-100) L 01/12/25 03:44 LDL/HDL Ratio 4.58 RATIO (0.00-3.22) H 01/12/25 03:44 Cholesterol/HDL Ratio 6.52 mg/dL (0.0-4.40) H 01/12/25 03:44 Procalcitonin 0.11 ng/mL (0-0.5) 01/11/25 13:52 TSH 11.83 uIU/mL (0.27-4.20) H 01/11/25 13:52 Free T4 1.07 ng/dL (0.82-1.77) 01/12/25 03:44 Urine Color Yellow (Yellow) 01/11/25 21:15 Urine Appearance Cloudy (CLEAR) A 01/11/25 21:15 Urine pH 5 (5-7) 01/11/25 21:15 Ur Specific [place] 1.015 (1.005-1.030) 01/11/25 21:15 Urine Protein 1+ (Negative) A 01/11/25 21:15 Urine Glucose (UA) Trace (Normal) H 01/11/25 21:15 Urine Ketones Negative (Negative) 01/11/25 21:15 Urine Blood Trace (Negative) A 01/11/25 21:15 Urine Nitrate Negative (Negative) 01/11/25 21:15 Urine Bilirubin Neg (Negative) 01/11/25 21:15 Urine Urobilinogen 1 mg/dL (Negative) H 01/11/25 21:15 Ur Leukocyte Esterase 1+ (Negative) A 01/11/25 21:15 Urine RBC 3-5 /hpf (0-2) 01/11/25 21:15 Urine WBC 21-50 /hpf (0-5) H 01/11/25 21:15 Ur Squamous Epith Cells 21-50 /hpf (0-5) H 01/11/25 21:15 Amorphous Sediment Not Reportable 01/11/25 21:15 Urine Bacteria 4+ /hpf (NONE) H 01/11/25 21:15 Hyaline Casts 115.85 /lpf 01/11/25 21:15 Ur Random Sodium 73 mmol/L 01/12/25 20:30 Ur Random Potassium 33 mmol/L 01/12/25 20:30 Ur Random Chloride 71 mmol/L 01/12/25 20:30 Digoxin 2.6 ng/mL (0.6-1.2) H* 01/13/25 06:54 Hepatitis A IgM Ab Non-reactive (Nonreactive) 01/13/25 06:54 Hep Bs Antigen Non-reactive (Nonreactive) 01/13/25 06:54 Hep B Core IgM Ab Non-reactive (Nonreactive) 01/13/25 06:54 Hepatitis C Antibody Non-reactive (Nonreactive) 01/13/25 06:54 Influenza A (PCR) Negative (Negative) 01/11/25 15:26 Influenza Type B (PCR) Negative (Negative) 01/11/25 15:26 RSV (PCR) Negative (Negative) 01/11/25 15:26 SARS-CoV-2 (PCR) Negative (Negative) 01/11/25 15:26 Radiology Impressions Chest X-Ray 01/11/25 12:07 IMPRESSION: 1. Mild cardiac enlargement. No acute process. Chest CTA 01/11/25 12:55 IMPRESSION: 1. No evidence of pulmonary embolus. 2. Cardiomegaly with evidence of RIGHT heart dysfunction and reflux of contrast into the hepatic veins. 3. Interstitial thickening likely due to edema. No focal pneumonia. Renal Ultrasound 01/12/25 08:28 IMPRESSION: Normal renal ultrasound. Venous Duplex 01/12/25 16:04 IMPRESSION: No evidence of deep vein thrombosis. Indeterminate mobile nonshadowing echoes within a patent right internal jugular vein. Differential considerations include chronic nonocclusive thrombus fragments or possibly iatrogenic or catheter-related debris. Correlate for history of recent catheterization or intervention. Liver Ultrasound 01/13/25 12:41 IMPRESSION: No acute findings. Recent Clincial Data Last Vital Signs Temp 98.0 F 01/13/25 15:54 Pulse 141 H 01/13/25 19:53 Resp 33 H 01/13/25 19:53 BP 126/78 01/13/25 19:53 Pulse Ox 95 01/13/25 19:53 O2 Del Method Nasal Cannula 01/13/25 19:53 O2 Flow Rate 1 01/12/25 20:00 Vital Signs Temp Pulse Resp BP Pulse Ox O2 Del Method 01/13/25 19:53 141 H 33 H 126/78 95 Nasal Cannula 01/13/25 15:54 98.0 F 123 H 25 H 93/63 92 Room Air 01/13/25 11:36 98.0 F 124 H 21 H 108/66 92 Room Air Intake & Output/Weight 04/08/01/12/25 01/13/25 01/14/25 06:59 06:59 06:59 06:59 Intake Total 1638.933 / 1878.197 7409.417 / 1517.417 852.617 / 852.617 Output Total 0 / 0 2160 / 2160 1500 / 1500 Balance 1638.933 / 1638.933 -642.583 / -642.583 -647.383 / -647.383 Weight 66.224 kg 74.417 kg Vitals Last Vital Signs Temp 98.0 F 01/13/25 15:54 Pulse 141 H 01/13/25 19:53 Resp 33 H 01/13/25 19:53 BP 126/78 01/13/25 19:53 Pulse Ox 95 01/13/25 19:53 O2 Del Method Nasal Cannula 01/13/25 19:53 O2 Flow Rate 1 01/12/25 20:00 TS Medications Medications Acetaminophen (Acetaminophen 325 Mg Tablet) 650 mg PO Q6H PRN PRN Reason: Mild/Mod Pain Or Temp >/= 101 Last Admin: 01/13/25 11:29 Dose: 650 mg Hydrocodone Bitart/Acetaminophen (Hydrocodone-Acetaminophen 5-325 Mg Tablet) 1 tab PO Q4H PRN PRN Reason: MODERATE PAIN Last Admin: 01/13/25 18:59 Dose: 1 tab Amiodarone HCl (Amiodarone 50 Mg/Ml Sdv 3 Ml) 150 mg IVP ONCE ONE Stop: 01/13/25 19:56 Aspirin (Aspirin 81 Mg Ec Tablet) 81 mg PO DAILY [facility] Last Admin: 01/13/25 08:55 Dose: 81 mg Atorvastatin Calcium (Atorvastatin 10 Mg Tablet) 20 mg PO Q7D ALEJANDRO Last Admin: 01/12/25 08:40 Dose: 20 mg Ceftriaxone Sodium (Ceftriaxone 1,000 Mg Sdv) 1,000 mg IVP Q24H ALEJANDRO; Protocol Last Admin: 01/13/25 08:55 Dose: 1,000 mg Glucagon (Glucagon 1 Mg/Ml Kit 1 Ml) 1 mg IM ONCE PRN; Protocol PRN Reason: Adult Acute Hypoglycemia Nursing Prot. Heparin Sodium (Porcine) (Heparin 5,000 Unit/Ml Inj 1 Ml) 0 unit IVP PRN PRN; Protocol PRN Reason: Heparin Weight Based Protocol -Subsequent Bolus Last Admin: 01/13/25 15:27 Dose: 2,600 unit Heparin Sodium/Sodium Chloride (Heparin Drip) 25,000 unit in 500 mls @ 0 mls/hr IV CONT [facility]; Protocol Last Admin: 01/13/25 15:28 Dose: 20.39 unit/kg/hr, 27 mls/hr Dextrose (D5w) 500 mls @ 0 mls/hr IV ONCE PRN; Protocol PRN Reason: Adult Acute Hypoglycemia Prot Dextrose (D10w) 125 mls @ 750 mls/hr IV PRN PRN; Protocol PRN Reason: Adult Acute Hypoglycemia Nursing Protocol Dextrose (D10w) 250 mls @ 1,000 mls/hr IV PRN PRN; Protocol PRN Reason: Adult Acute Hypoglycemia Nursing Protocol Amiodarone HCl/Dextrose (Nexterone) 360 mg in 200 mls @ 0 mls/hr IV .Q0M [facility]; Protocol Insulin Human Lispro (Insulin Lispro 100 Unit/1 Ml) 0 unit SUBCUT WM&BEDTIME [facility]; Protocol Last Admin: 01/13/25 17:54 Dose: 2 unit Metoprolol Tartrate (Metoprolol Tartrate 25 Mg Tablet) 25 mg PO BID@0900,2100 [facility] Last Admin: 01/13/25 08:56 Dose: 25 mg Ondansetron HCl (Ondansetron 2 Mg/Ml Sdv 2 Ml) 4 mg IVP Q8H PRN PRN Reason: vomiting, or N/V if npo Pantoprazole Sodium (Pantoprazole Dr 40 Mg Tablet) 40 mg PO DAILY [facility] Last Admin: 01/13/25 08:55 Dose: 40 mg Sodium Bicarbonate (Sodium Bicarbonate 650 Mg Tablet) 650 mg PO TID [facility] Last Admin: 01/13/25 15:28 Dose: 650 mg Discontinued Medications Amiodarone HCl (Amiodarone 50 Mg/Ml Sdv 3 Ml) 150 mg IVP ONCE ONE Stop: 01/11/25 12:08 Last Admin: 01/11/25 12:10 Dose: 150 mg Digoxin (Digoxin 250 Mcg/Ml Inj 2 Ml) 500 mcg IVP NOW ONE Stop: 01/12/25 00:25 Last Admin: 01/12/25 00:46 Dose: 500 mcg Digoxin (Digoxin 250 Mcg/Ml Inj 2 Ml) 125 mcg IVP DAILY [facility] Last Admin: 01/12/25 22:36 Dose: 125 mcg Diltiazem HCl (Diltiazem 5 Mg/Ml Sdv 5 Ml) 5 mg IVP ONCE ONE Stop: 01/12/25 19:57 Last Admin: 01/12/25 20:16 Dose: 5 mg Furosemide (Furosemide 10 Mg/Ml Sdv 4ml) 40 mg IVP Q12H ALEJANDRO Last Admin: 01/12/25 08:38 Dose: 40 mg Furosemide (Furosemide 10 Mg/Ml Sdv 4ml) 40 mg IVP BIDAC ALEJANDRO Furosemide (Furosemide 10 Mg/Ml Sdv 10ml) 80 mg IVP BIDAC ALEJANDRO Last Admin: 01/13/25 17:54 Dose: 80 mg Heparin Sodium (Porcine) (Heparin 5,000 Unit/Ml Inj 1 Ml) 0 unit IVP ONCE ONE; Protocol Stop: 01/11/25 13:02 Last Increment: 01/11/25 13:59 Dose: 3,300 unit Incremental Dosing Total Given: 3,300 unit Sodium Chloride (Sodium Chloride 0.9%) 1,000 mls @ 999 mls/hr IV .Q1H1M ONE Stop: 01/11/25 13:07 Last Infusion: 01/11/25 14:00 Dose: Infused Amiodarone HCl/Dextrose (Nexterone) 360 mg in 200 mls @ 0 mls/hr IV .Q0M ALEJANDRO; Protocol Last Titration: 01/13/25 10:52 Dose: Infused Magnesium Sulfate (Magnesium Sulfate Premix) 2 gm in 50 mls @ 50 mls/hr IV ONCE ONE Stop: 01/13/25 18:59 Last Admin: 01/13/25 18:18 Dose: 50 mls/hr Diltiazem HCl 100 mg/ Sodium (Chloride) 100 mls @ 0 mls/hr IV .Q0M ALEJANDRO; Protocol Iohexol (Iohexol 350 Mg/Ml 500 Ml Btl (Per Ml)) 0 ml IV ONCE ONE Stop: 01/11/25 13:43 Last Admin: 01/11/25 13:42 Dose: 85 ml Metoprolol Tartrate (Metoprolol Tartrate 25 Mg Tablet) 25 mg PO BID@0900,2100 ALEJANDRO Metoprolol Tartrate (Metoprolol Tartrate 25 Mg Tablet) 25 mg PO ONCE ONE Stop: 01/12/25 22:22 Last Admin: 01/12/25 22:35 Dose: 25 mg Morphine Sulfate (Morphine 4 Mg/Ml Sdv 1 Ml) 4 mg IVP ONCE ONE Stop: 01/11/25 13:02 Last Admin: 01/11/25 13:27 Dose: 4 mg Ondansetron HCl (Ondansetron 2 Mg/Ml Sdv 2 Ml) 4 mg IVP ONCE ONE Stop: 01/11/25 13:02 Last Admin: 01/11/25 13:28 Dose: 4 mg Potassium Chloride (Potassium Chloride Er 20 Meq Tablet) 40 meq PO ONCE ONE Stop: 01/12/25 21:34 Last Admin: 01/12/25 22:35 Dose: 40 meq Potassium Chloride (Potassium Chloride Er 20 Meq Tablet) 20 meq PO ONCE ONE Stop: 01/13/25 19:32 Sodium Bicarbonate (Sodium Bicarbonate 8.4% 1 Meq/Ml 50ml Syr) 50 meq IVP ONCE ONE Stop: 01/12/25 15:55 Last Admin: 01/12/25 16:13 Dose: 50 meq Sodium Chloride (Sodium Chloride 1 Gm Tablet) 1 gm PO ONCE ONE Stop: 01/12/25 16:01 Last Admin: 01/12/25 16:12 Dose: 1 gm Sodium Polystyrene Sulfonate (Sodium Polystyrene Sulfonate 15 Gm/60 Ml Btl) 15 gm PO ONCE ONE Stop: 01/12/25 05:29 Last Admin: 01/12/25 05:49 Dose: 15 gm Allergies Penicillins Allergy (Severe, Verified 01/11/25 12:07) ALGY-Rash simvastatin Allergy (Intermediate, Verified 01/11/25 12:07) ADR-Abdominal Pain lisinopril (From Zestril) Adverse Reaction (Intermediate, Verified 01/11/25 12:07) ADR-Cough Home Medications aspirin 81 mg tablet,delayed release (Adult Low Dose Aspirin) 81 mg PO QDAY 11/01/19 [History Confirmed 01/11/25] pseudoephedrine HCl 30 mg tablet 30 mg PO DAILY PRN Congestion 11/02/19 [History Confirmed 01/11/25] amlodipine 5 mg tablet 5 mg PO QDAY #90 tabs 11/09/24 [Rx Confirmed 01/11/25] omeprazole 20 mg capsule,delayed release 20 mg PO DAILY #90 caps 11/09/24 [Rx Confirmed 01/11/25] spironolactone 25 mg tablet 25 mg PO QDAY #90 tabs 11/09/24 [Rx Confirmed 01/11/25] hydrochlorothiazide 25 mg tablet 25 mg PO QAM #90 tabs 11/22/24 [Rx Confirmed 01/11/25] chlorpheniramine maleate 4 mg tablet 4 mg PO DAILY 01/11/25 [History Confirmed 01/11/25] lovastatin 40 mg tablet 40 mg PO Q7D 01/11/25 [History Confirmed 01/11/25] metoprolol tartrate 50 mg tablet 50 mg PO BID 01/11/25 [History Confirmed 01/11/25] Discharge Plan Discharge Patient Disposition: Xfer Short-Term Hosp Condition: Stable Prescriptions: No Action aspirin [Adult Low Dose Aspirin] 81 mg tablet,delayed release (DR/EC) 81 mg PO QDAY pseudoephedrine HCl 30 mg tablet 30 mg PO DAILY PRN (Reason: Congestion) amlodipine 5 mg tablet 5 mg PO QDAY Qty: 90 0RF spironolactone 25 mg tablet 25 mg PO QDAY Qty: 90 3RF omeprazole 20 mg capsule,delayed release(DR/EC) 20 mg PO DAILY Qty: 90 3RF hydrochlorothiazide 25 mg tablet 25 mg PO QAM Qty: 90 3RF chlorpheniramine maleate [Chlor Allergy] 4 mg Tablet 4 mg PO DAILY lovastatin 40 mg tablet 40 mg PO Q7D metoprolol tartrate 50 mg tablet 50 mg PO BID Discharge Orders: Discharge Order (Routine); Ordered 01/13/25 Ordered By: Artemio Rubi Referrals: Mila Mcintosh FNP-C [Primary Care Provider] - 01/19/25 9:40 am Transfer Attestations Time Spent in Transfer Care: greater than 30 min Quality Metrics Clinical Quality Measures [ No reported AMI, CVA or VTE this stay] Coding Level of Care Code Acute Code for Chg Fwd Diagnoses Mitral regurgitation I34.0 Atrial fibrillation with RVR I48.91 Heart failure I50.9 Elevated troponin R79.89 HTN (hypertension) I10
[2025-01-13 20:11] LABS: Digoxin 1.4 ng/mL (0.6-1.2)
[2025-01-13 20:33] LABS: Glucose Point of Care 162 mg/dL (70-110)
[2025-01-13 20:33] LABS: Lactate (Lactic Acid level) 1.6 mmol/L (0.5-2.2)
[2025-01-13] MEDS: potassium chloride ER 20 mEq Tablet PO (20:36)
[2025-01-13] MEDS: amiodarone 50 mg/mL SDV 3 mL 150 MG IVP (20:36)
--- NOTE | 2025-01-13 23:51 | PC.NURSE ---
Linus at bedside preparing to transfer patient to [facility]. Family was in room [facility] and collected all belongings. Patient has phone and machine group leader with her. Amiodarone and heparin currently running.
[2025-01-14 00:17] VITALS: BP 117/76; PULSE 126; RESP 21; O2SAT 93
== END 2025-01-13 23:45 | disposition other institution (70) | DRG 308 ==
LOC: ER 14:30 → CSU 19:04 → ER IP 01-12 07:00
PROVIDERS: Internal Medicine; Internal Medicine Cardiovascular Disease; Admitting Provider Internal Medicine; Emergency Provider Emergency Medicine; PCP Nurse Practitioner; Visit Provider Internal Medicine
DX: I48.0 Paroxysmal atrial fibrillation (principal); I50.23 Acute on chronic systolic (congestive) heart failure; E87.1 Hypo-osmolality and hyponatremia; E87.20 Acidosis, unspecified; N17.9 Acute kidney failure, unspecified; I13.0 Hypertensive heart and chronic kidney disease with heart failure and stage 1 through stage 4 chronic kidney disease, or unspecified chronic kidney disease; I25.10 Atherosclerotic heart disease of native coronary artery without angina pectoris; E78.5 Hyperlipidemia, unspecified; I34.0 Nonrheumatic mitral (valve) insufficiency; I25.5 Ischemic cardiomyopathy; I95.9 Hypotension, unspecified; R79.89 Other specified abnormal findings of blood chemistry; R73.9 Hyperglycemia, unspecified; E83.52 Hypercalcemia; I11.0 Hypertensive heart disease with heart failure; N18.9 Chronic kidney disease, unspecified; R74.01 Elevation of levels of liver transaminase levels; R89.2 Abnormal level of other drugs, medicaments and biological substances in specimens from other organs, systems and tissues; Z79.82 Long term (current) use of aspirin; Z79.899 Other long term (current) drug therapy; Z88.0 Allergy status to penicillin; Z88.8 Allergy status to other drugs, medicaments and biological substances; Z11.52 Encounter for screening for COVID-19
CPT/HCPCS: 36415; 36416; 51702; 71045; 71275; 76705; 76770; 80048; 80053; 80061; 80069; 80074; 80162; 81001; 82436; 82962; 83036; 83605; 83735; 83880; 84100; 84133; 84145; 84300; 84439; 84443; 84484; 85025; 85610; 85730; 86140; 87637; 93005; 93306; 93971; 96365; 96366; 96367; 96372; 96375; 96376; 99291; A4222; A9270; G0378; J0282; J0283; J0696; J1160; J1644; J1815; J1938; J1940; J2270; J2405; J3475; J3490; J7030; J9999